=== PATIENT | female | born 1935 | race Caucasian/White ===

== ENCOUNTER 2017-01-02 10:06 | Emergency (ER) | payer MEDICARE ==
[2017-01-02 10:29] VITALS: BP 179/85
--- NOTE | 2017-01-02 10:45 | UC ---
Dizzy HPI HPI Summary: 61 this AM about 6:30AM Stayed in bed until about 8am because she felt bad dizzy feels as though she will pass out no CP or sob no palpitations Has a chronic CAMACHO for which she takes OTC meds head feels funny left forearm fells numb she has overwhelming anxiety with is something she has never had nausea - History Of Current Complaint Chief Complaint: UC Stated Complaint: DIZZY ARM FEELS FUNNY Time Seen by Provider: 01/02/17 10:23 Hx Obtained From: Patient Onset/Duration: Sudden Onset, Lasting Hours Timing: Constant Severity Initially: Moderate Severity Currently: Moderate Pain Intensity: 2 Pain Scale Used: 0-10 Numeric Character: Lightheaded, Dizzy Aggravating Factor(s): Nothing Alleviating Factor(s): Nothing Associated Signs And Symptoms: Positive: Nausea - Allergies/Home Medications Allergies/Adverse Reactions: Allergies Allergy/AdvReac Type Severity Reaction Status Date / Time No Known Allergies Allergy Verified 01/02/17 10:18 Home Medications: Home Medications Ogtnwjy-Wroxqwxjbuywh-Eaghhcsi [Excedrin Extra Strength 250-250-65 mg] [History] Atenolol TAB* [Tenormin TAB* 25 MG] 01/02/17 [History] PMH/Surg Hx/FS Hx/Imm Hx Cardiovascular History Of: Reports: Cardiac Disorders - MVP, "double beat" Cancer History Of: Denies: Breast Cancer - Surgical History Surgical History: Yes Surgery Procedure, Year, and Place: Hysterectomy. Large bowel resection. Left breast biopsy. Left kidney "arthroscopy". Right wrist sx- plate placement. Hemorrhoidectomy. Left knee menicus - Family History Known Family History: Positive: Hypertension - Social History Alcohol Use: None Substance Use Type: None Smoking Status (MU): Never Smoked Tobacco Have You Smoked in the Last Year: No Review of Systems Constitutional: Negative Skin: Negative Eyes: Negative ENT: Negative Respiratory: Negative Cardiovascular: Negative Gastrointestinal: Negative Genitourinary: Negative Motor: Negative Neurovascular: Negative Musculoskeletal: Negative Neurological: Numbness Psychological: Negative All Other Systems Reviewed And Are Negative: Yes Physical Exam Triage Information Reviewed: Yes Appearance: Well-Appearing, No Pain Distress, Well-Nourished Vital Signs: Initial Vital Signs Temp 97.7 F 01/02/17 10:19 Pulse 70 01/02/17 10:19 Resp 18 01/02/17 10:19 BP 179/85 01/02/17 10:19 Pulse Ox 96 01/02/17 10:19 Vital Signs Reviewed: Yes Eyes: Positive: Conjunctiva Clear ENT: Negative: Hearing grossly normal, Nasal congestion, Nasal drainage, Trismus , Muffled/hoarse voice Neck: Positive: Supple, Nontender, Other: - no bruits Respiratory: Positive: Lungs clear, Normal breath sounds, No respiratory distress Cardiovascular: Positive: RRR, Brisk Capillary Refill. Negative: Tachycardia, Bradycardia Abdomen Description: Positive: Nontender, No Organomegaly Bowel Sounds: Positive: Present Musculoskeletal: Positive: ROM Intact, No Edema Neurological: Positive: Alert Psychological Exam: Normal Skin Exam: Normal Diagnostics - EKG Cardiac Rate: NL Cardiac Rhythm: Sinus: Normal Ectopy: PACs ST Segment: Normal Dizzy Course/Dx - Course Course Of Treatment: d/w Dr. Zuñiga. accepts patient. [place] [facility] [place] - Differential Dx/Diagnosis Provider Diagnoses: dizziness. anxiety of uncertain cause Discharge - Discharge Plan Condition: Guarded Disposition: TRANS HIGHER LVL OF CARE FAC Referrals: Rolando Orellana MD [Primary Care Provider] -
== END 2017-01-02 11:01 | disposition short-term general hospital (02) ==
LOC: UCEAST 10:06
DX: F41.9 Anxiety disorder, unspecified (principal); R42 Dizziness and giddiness; R20.0 Anesthesia of skin; I34.1 Nonrheumatic mitral (valve) prolapse
CPT/HCPCS: 93005; 99213; G0463

== ENCOUNTER 2017-01-02 11:35 | Observation (INO) | payer MEDICARE ==
--- NOTE | 2017-01-02 13:06 | RAD ---
HISTORY: Weakness COMPARISONS: October 18, 2016 VIEWS:1: Single frontal portable view of the chest at 12:35 PM FINDINGS: LINES AND TUBES: None. CARDIOMEDIASTINAL SILHOUETTE: The cardiomediastinal silhouette is normal for portable technique. PLEURA: The costophrenic angles are sharp. No pleural abnormalities are noted. LUNG PARENCHYMA: There is hyperinflation. ABDOMEN: The upper abdomen is clear. There is no subphrenic gas. BONES AND SOFT TISSUES: No bone or soft tissue abnormalities are noted. IMPRESSION: COPD. NO ACTIVE CARDIOPULMONARY DISEASE.
--- NOTE | 2017-01-02 13:34 | RAD ---
HISTORY: Left arm paresthesia, near syncope COMPARISONS: None TECHNIQUE: Multiple contiguous axial CT scans were obtained of the head without intravenous contrast. FINDINGS: HEMORRHAGE/INFARCT: There is no hemorrhage or acute infarct. MASSES/SHIFT: There is no mass or shift. EXTRA-AXIAL SPACES: There are no extra-axial fluid collections. SULCI AND VENTRICLES: The sulci and ventricles are normal in size and position for the patient's stated age. CEREBRUM: There is mild patchy hypoattenuation of the periventricular and subcortical white matter. BRAINSTEM: There are no focal parenchymal abnormalities. CEREBELLUM: There are no focal parenchymal abnormalities. VESSELS: The vessels are grossly normal. PARANASAL SINUSES: The paranasal sinuses are clear. ORBITS: The orbits are unremarkable. BONES AND SOFT TISSUE: No bone or soft tissue abnormalities are noted. OTHER: None IMPRESSION: 1. NO ACUTE INTRACRANIAL PATHOLOGY. 2. MILD CHRONIC SMALL VESSEL ISCHEMIC CHANGES.
[2017-01-02 13:50] LABS: Hematocrit 43 % (35-47); Hemoglobin 13.6 g/dl (12.0-16.0); Mean Corpuscular HGB Conc 32 g/dl (31-36); Mean Corpuscular Hemoglobin 28 pg (27-31); Mean Corpuscular Volume 87 fL (80-97); Mean Platelet Volume 8 um3 (7.4-10.4); Red Blood Count 4.89 10^6/ul (4.0-5.4); Red Cell Distribution Width 15 % (10.5-15); White Blood Count 9.1 10^3/ul (3.5-10.8)
[2017-01-02 14:06] LABS: Albumin 3.9 g/dL (3.2-5.2); BUN/Creatinine Ratio 23.7 (8-20); Calcium 9.3 mg/dL (8.6-10.3); EGFR African American 94.2 (>60); EGFR Non-African American 73.2 (>60); Globulin 2.6 g/dL (2-4); Magnesium 2.1 mg/dL (1.9-2.7); Potassium 3.5 mmol/L (3.5-5.0); Total Bilirubin 0.5 mg/dL (0.2-1.0); Total Protein 6.5 g/dL (6.4-8.9); Troponin I 0.01 ng/mL (<0.04)
[2017-01-02 14:14] LABS: Urine Bacteria Absent (Absent); Urine Bilirubin Negative (Negative); Urine Glucose Negative (Negative); Urine Nitrite Negative (Negative)
--- NOTE | 2017-01-02 15:02 | RAD ---
CLINICAL HISTORY: Left flank pain, hematuria COMPARISON: None TECHNIQUE: Multiple contiguous axial CT scans were obtained of the abdomen and pelvis, without intravenous contrast enhancement. Coronal and sagittal multiplanar reformations are submitted for review. Oral contrast was not administered. FINDINGS: LUNG BASES: The lung bases are clear. LIVER: There are multiple low-attenuation hepatic parenchymal lesions. Largest are consistent with simple cysts. These are too small to definitively characterize. BILE DUCTS: There is no intrahepatic or extrahepatic biliary dilatation. GALLBLADDER: The gallbladder is normal, without pericholecystic inflammatory change. PANCREAS: The pancreas is normal, without mass or ductal dilatation. SPLEEN: As described below, there is a perisplenic or subcapsular lesion that appears to radiate from the left kidney, though is contiguous with the spleen. UPPER GI TRACT: Evaluation of the gastrointestinal tract is limited by incomplete gastric distention. The upper GI tract is unremarkable. SMALL BOWEL AND MESENTERY: The small bowel is normal in contour, course, and caliber. There is no obstruction or dilatation. COLON: There are multiple diverticula of the ascending, descending, and sigmoid colon. There is no pericolonic inflammatory change. There is post surgical change to the rectum. ADRENALS: Normal bilaterally. KIDNEYS: There is a lobulated partially calcified lesion that appears to regimen from the midpole of the left kidney and extends superiorly, contiguous with the spleen. This measures approximately 5.6 x 1.9 x 2.2 cm in size. Elsewhere, there is no hydronephrosis or nephrolithiasis BLADDER: The bladder is incompletely distended but is grossly normal. PELVIC ORGANS: The pelvic organs are not visualized. AORTA: There is calcific atherosclerotic disease of the abdominal aorta and its branches, without aneurysmal dilatation IVC: Unremarkable LYMPH NODES: There is no lymphadenopathy by size criteria. ABDOMINAL WALL: There is no evidence for abdominal wall hernia. BONES AND SOFT TISSUES: Degenerative changes are noted of the spine, most pronounced at L3-L4 and L5-S1 OTHER: None IMPRESSION: 1. NO HYDRONEPHROSIS OR NEPHROLITHIASIS. 2. THERE IS A PARTIALLY CALCIFIED LESION THAT IS CONTIGUOUS WITH BOTH THE SPLEEN AND THE LEFT KIDNEY, AND APPEARS TO ORIGINATE FROM THE LEFT KIDNEY. WHILE THIS MAY REPRESENT A SOLID RENAL PARENCHYMAL NEOPLASM, THE DIFFERENTIAL ALSO INCLUDES CALCIFICATION THE SEQUELA OF PREVIOUS PERISPLENIC HEMATOMA. THIS IS INCOMPLETELY EVALUATED ON THE CURRENT EXAMINATION. RECOMMEND FURTHER EVALUATION WITH CONTRAST-ENHANCED RENAL PROTOCOL CT VERSUS CONTRAST-ENHANCED MRI OF THE ABDOMEN IN THE NONACUTE SETTING, OR COMPARISON TO OUTSIDE IMAGING. 3. DIVERTICULOSIS WITHOUT PERICOLIC PLANTAR CHANGE TO SUGGEST DIVERTICULITIS. 4. ATHEROSCLEROSIS. 5. MULTIPLE LOW-ATTENUATION HEPATIC PARENCHYMAL LESIONS. THE LARGEST ARE CONSISTENT WITH SIMPLE CYSTS. THE OTHERS ARE TOO SMALL TO DEFINITIVELY CHARACTERIZE BUT LIKELY REPRESENT SMALL CYSTS VERSUS HEMANGIOMAS
--- NOTE | 2017-01-02 15:07 | ED ---
Nikhil Carvalho Claudia, scribed for Janis Zuñiga MD on 01/02/17 at 1248 . Dizziness - HPI Summary HPI Summary: 81 year old female presents to the ED with dizziness and nausea. Pt is referred to [facility] [facility] from [facility]. Pt notes 3 episodes of dizziness this am around 0800. Pt describes these episodes as near syncope. states became lightheaded and thought she was going to pass out. Pt also notes that she had nausea during these episodes - vomiting. Pt without history of similar. Pt denies cp, palpitation, sob with symtoms. She notes that she also had a new discomfort to her left arm from her elbow to her wrist this am but denies it being sharp or tingling in nature. Denies weakness to ext. She notes the discomfort is now gone. She also denies any weakness, facial droop, slurred speech this am, difficulty with speech or thought. Pt also states she is having some intermittent left side pain around her last rib since yesterday. Pt also denies dysuria, hematuria, diarrhea, and CP. Pt is not on any blood thinners but does take 100mg of [place] daily. No h/o CAD, CVA. Pt with h/o palpitations. Pt followed by a information assurance officer in [facility]. Take betablocker for palpitations. Pt went to urgent care by Lily Pt to ED by EMSPCP- Dr. Orellana - History Of Current Complaint Chief Complaint: EDDizziness Stated Complaint: DIZZY Time Seen by Provider: 01/02/17 12:24 Hx Obtained From: Patient Onset/Duration: Resolved Timing: Intermittent Episode Lasting - 5 min Severity Currently: None Character: Dizzy - near syncope, "things got cloudy like I was going to pass out." Aggravating Factor(s): Nothing Alleviating Factor(s): Nothing Associated Signs And Symptoms: Positive: Nausea, Other: - dizziness. Negative: Vomiting, SOB, Palpitations, Decreased Oral Intake, Fever, Chills, Blood In Stool - Allergies/Home Medications Allergies/Adverse Reactions: Allergies Allergy/AdvReac Type Severity Reaction Status Date / Time No Known Allergies Allergy Verified 01/02/17 10:18 Home Medications: Home Medications Aspirin-Caffeine [Anacin 400-32 mg] 1 tab PO DAILY 01/02/17 [History Confirmed 01/02/17] Calcium [Oyster-Abisai 500] 1,000 mg PO DAILY 01/02/17 [History Confirmed 01/02/17] Cholecalciferol [Vitamin D3 Ultra Strength] 10,000 unit PO DAILY 01/02/17 [ History Confirmed 01/02/17] Gabapentin CAP(*) [Neurontin 100 mg CAP(*)] 100 mg PO TID 01/02/17 [History Confirmed 01/02/17] Levothyroxine TAB* [Synthroid TAB*] 100 mcg PO DAILY 01/02/17 [History Confirmed 01/02/17] PMH/Surg Hx/FS Hx/Imm Hx Previously Healthy: Yes Endocrine/Hematology History: Reports: Hx Anticoagulant Therapy - asa - stopped taking recently second to gastritis Cardiovascular History: Reports: Other Cardiovascular Problems/Disorders - IRREGULAR HEARTBEAT/MTV ALSO GI History: Reports: Other GI Disorders - gastritis History: Reports: Other Problems/Disorders - 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 Large bowel resection. Left breast biopsy. Left kidney "arthroscopy". Right wrist sx- plate placement. Hemorrhoidectomy. Left knee menicus Infectious Disease History: No Infectious Disease History: Denies: Traveled Outside the [place] in Last 30 Days - Family History Known Family History: Positive: Cardiac Disease, Hypertension - Social History Occupation: Retired Lives: Alone Alcohol Use: None Substance Use Type: Reports: None Smoking Status (MU): Never Smoked Tobacco Have You Smoked in the Last Year: No Review of Systems - ROS Summary Review of Systems Summary: . Constitutional: Negative Negative: Fever, Chills Eyes: Negative Negative: Photophobia ENT: Negative Cardiovascular: Negative Negative: Chest Pain Respiratory: Negative Negative: Shortness Of Breath, Cough Positive: Nausea. Negative: Diarrhea Genitourinary: Negative Positive: flank pain. Negative: burning, dysuria, incontinence Musculoskeletal: Negative Skin: Negative Neurological: Other - dizziness Negative: Weakness, Numbness Psychological: Normal All Other Systems Reviewed And Are Negative: Yes Physical Exam Triage Information Reviewed: Yes Vital Signs On Initial Exam: Initial Vitals Temp Pulse Resp BP Pulse Ox 97.0 F 58 14 162/74 99 01/02/17 11:35 01/02/17 11:35 01/02/17 11:35 01/02/17 11:35 01/02/17 11:35 Vital Signs Reviewed: Yes Appearance: Positive: Well-Appearing, No Pain Distress Skin: Positive: Warm, Skin Color Reflects Adequate Perfusion, Dry Eyes: Positive: Normal, EOMI, OVI, Other: - no nystagmus b/l ENT: Positive: Normal ENT inspection, TMs normal Neck: Positive: Supple, Nontender Respiratory/Lung Sounds: Positive: Clear to Auscultation, Breath Sounds Present. Negative: Rales, Wheezes Cardiovascular: Positive: Normal, RRR, Other - no bruits b/l. Negative: Murmur Abdomen Description: Positive: Nontender, No Organomegaly, Soft Bowel Sounds: Positive: Present Musculoskeletal: Positive: Normal, Strength/ROM Intact Neurological: Positive: Normal, Sensory/Motor Intact, Alert, Oriented to Person Place, Time. Negative: CN Intact II-III, Facial Droop, Slurred Speech Psychiatric: Positive: Normal AVPU Assessment: Alert - Rashi Coma Scale Best Eye Response: 4 - Spontaneous Best Motor Response: 6 - Obeys Commands Best Verbal Response: 5 - Oriented Coma Scale Total: 15 Diagnostics - Vital Signs Vital Signs Temp Pulse Resp BP Pulse Ox 01/02/17 12:00 57 12 98 01/02/17 11:52 59 10 99 01/02/17 11:35 97.0 F 58 14 162/74 99 - Laboratory Lab Results: Lab Results 01/02/17 01/02/17 01/02/17 Range/Units 13:40 13:40 13:40 WBC 9.1 (3.5-10.8) 10^3/ul RBC 4.89 (4.0-5.4) 10^6/ul Hgb 13.6 (12.0-16.0) g/dl Hct 43 (35-47) % MCV 87 (80-97) fL MCH 28 (27-31) pg MCHC 32 (31-36) g/dl RDW 15 (10.5-15) % Plt Count 349 (150-450) 10^3/ul MPV 8 (7.4-10.4) um3 Neut % (Auto) 83.7 H (38-83) % Lymph % (Auto) 11.3 L (25-47) % Dodge % (Auto) 4.0 (1-9) % Eos % (Auto) 0.3 (0-6) % Baso % (Auto) 0.7 (0-2) % Absolute Neuts (auto) 7.6 (1.5-7.7) 10^3/ul Absolute Lymphs (auto) 1.0 (1.0-4.8) 10^3/ul Absolute Monos (auto) 0.4 (0-0.8) 10^3/ul Absolute Eos (auto) 0 (0-0.6) 10^3/ul Absolute Basos (auto) 0.1 (0-0.2) 10^3/ul Absolute Nucleated RBC 0 10^3/ul Nucleated RBC % 0 Sodium 134 (133-145) mmol/L Potassium 3.5 (3.5-5.0) mmol/L Chloride 101 (101-111) mmol/L Carbon Dioxide 26 (22-32) mmol/L Anion Gap 7 (2-11) mmol/L BUN 18 (6-24) mg/dL Creatinine 0.76 (0.51-0.95) mg/dL Est GFR ( Amer) 94.2 (>60) Est GFR (Non-Af Amer) 73.2 (>60) BUN/Creatinine Ratio 23.7 H (8-20) Glucose 85 (70-100) mg/dL Calcium 9.3 (8.6-10.3) mg/dL Magnesium 2.1 (1.9-2.7) mg/dL Total Bilirubin 0.50 (0.2-1.0) mg/dL AST 17 (13-39) U/L ALT 17 (7-52) U/L Alkaline Phosphatase 75 (34-104) U/L Total Creatine Kinase 47 (10-223) U/L Troponin I 0.01 (<0.04) ng/mL B-Natriuretic Peptide 106 H ( - 100) pg/mL Total Protein 6.5 (6.4-8.9) g/dL Albumin 3.9 (3.2-5.2) g/dL Globulin 2.6 (2-4) g/dL Albumin/Globulin Ratio 1.5 (1-3) Urine Color Urine Appearance Urine pH (5-9) Ur Specific Lapel (1.010-1.030) Urine Protein (Negative) Urine Ketones (Negative) Urine Blood (Negative) Urine Nitrate (Negative) Urine Bilirubin (Negative) Urine Urobilinogen (Negative) Ur Leukocyte Esterase (Negative) Urine WBC (Auto) (Absent) Urine RBC (Auto) (Absent) Ur Squamous Epith Cells (Absent) Urine Bacteria (Absent) Hyaline Casts (Absent) Urine Glucose (Negative) Urine Ascorbic Acid (Negative) 01/02/17 Range/Units 13:45 WBC (3.5-10.8) 10^3/ul RBC (4.0-5.4) 10^6/ul Hgb (12.0-16.0) g/dl Hct (35-47) % MCV (80-97) fL MCH (27-31) pg MCHC (31-36) g/dl RDW (10.5-15) % Plt Count (150-450) 10^3/ul MPV (7.4-10.4) um3 Neut % (Auto) (38-83) % Lymph % (Auto) (25-47) % Dodge % (Auto) (1-9) % Eos % (Auto) (0-6) % Baso % (Auto) (0-2) % Absolute Neuts (auto) (1.5-7.7) 10^3/ul Absolute Lymphs (auto) (1.0-4.8) 10^3/ul Absolute Monos (auto) (0-0.8) 10^3/ul Absolute Eos (auto) (0-0.6) 10^3/ul Absolute Basos (auto) (0-0.2) 10^3/ul Absolute Nucleated RBC 10^3/ul Nucleated RBC % Sodium (133-145) mmol/L Potassium (3.5-5.0) mmol/L Chloride (101-111) mmol/L Carbon Dioxide (22-32) mmol/L Anion Gap (2-11) mmol/L BUN (6-24) mg/dL Creatinine (0.51-0.95) mg/dL Est GFR ( Amer) (>60) Est GFR (Non-Af Amer) (>60) BUN/Creatinine Ratio (8-20) Glucose (70-100) mg/dL Calcium (8.6-10.3) mg/dL Magnesium (1.9-2.7) mg/dL Total Bilirubin (0.2-1.0) mg/dL AST (13-39) U/L ALT (7-52) U/L Alkaline Phosphatase (34-104) U/L Total Creatine Kinase (10-223) U/L Troponin I (<0.04) ng/mL B-Natriuretic Peptide ( - 100) pg/mL Total Protein (6.4-8.9) g/dL Albumin (3.2-5.2) g/dL Globulin (2-4) g/dL Albumin/Globulin Ratio (1-3) Urine Color Yellow Urine Appearance Clear Urine pH 5.0 (5-9) Ur Specific Lapel 1.012 (1.010-1.030) Urine Protein Negative (Negative) Urine Ketones 1+ H (Negative) Urine Blood 2+ H (Negative) Urine Nitrate Negative (Negative) Urine Bilirubin Negative (Negative) Urine Urobilinogen Negative (Negative) Ur Leukocyte Esterase Negative (Negative) Urine WBC (Auto) Trace(0-5/hpf) (Absent) Urine RBC (Auto) 2+(6-10/hpf) H (Absent) Ur Squamous Epith Cells Present H (Absent) Urine Bacteria Absent (Absent) Hyaline Casts Present H (Absent) Urine Glucose Negative (Negative) Urine Ascorbic Acid * H (Negative) Result Diagrams: 01/02/17 13:40 01/02/17 13:40 Lab Statement: Any lab studies that have been ordered have been reviewed, and results considered in the medical decision making process. - Radiology CXR Xray Interpretation: No Acute Changes - COPD. NO ACTIVE CARIOPULMONARY DISEASE. Radiology Interpretation Completed By: Radiologist - CT BRAIN CT CT Interpretation: No Acute Changes - NO ACUTE INTRACRANIAL PATHOLOGY MILD CHRONIC SMALL VESSEL CHANGES ABD/PELVIS CT CT Interpretation: Positive (See Comments) - NO HYDRONEPHORSIS OR NEPHROLITHIASIS. THERE US A PARTIALLY CALCIFIED LESION THAT IS CONTIGUOUS WITH BOTH THE SPLEEN AND THE LEFT KIDNEY, AND APPEARS TO ORIGINATE FROM THE LEFT KIDNEY. WHILE THIS MAY REPRESENT A SOLID RENAL PARENCHYMAL NEOPLASM, THE DIFFERENTIAL ALSO INCLUDES CALCIFICATION THE SEQUELA OF PREVIOUS PERISPLENIC HEMATOMA. THIS IS INCOMPLETELY EVALUATED ON THE CURRENT EXAMINATION. RECOMMEND FURTHER EVALUATION WITH CONTRAST-ENHANCED RENAL PROTOCOL CT VERSUS CONTRAST- ENHANCED MRI OF THE ABDOMEN IN THE NONACUTE SETTING, OR COMPARISON TO OUTSIDE IMAGING. DIVERTICULOSIS WITHOUT PERCOLORIC PLANTAR CHNAGE TO SUGGEST DIVERTICULITIS. ARTHEROSCELEROSIS. MULTIPLE LOW-ATTENUTATION HEPATIC PARENCHYMAL LESIONS. THE LARGEST ARE CONSISTENT WITH SIMPLE CYSTS. THE OTHERS ARE TOO SMALL TO DEFINITIVELY CHARACTERIZE BUT LIEKLY REPRESENT SMALL CYSTS VERUS HEMANGIMOAS. CT Interpretation Completed By: Radiologist - EKG No standard instances Cardiac Rate: NL - 57 ST Segment: Normal Ectopy: None EKG Comparison: No Significant Change National Institutes Of Health - NIH Scale Level of Consciousness: Alert/Keenly Responsive Ask Patient the Month and His/Her Age: Both Correct Ask Pt to Open/Close Eyes and Executive Pilot/Release Non-Paretic Hand: Both Correctly Best Gaze (Only Horizontal Eye Movement): Normal Visual Field Testing: No Visual Loss Motor Function - Right Arm: No Drift-Holds 10 Seconds Motor Function - Left Arm: No Drift-Holds 10 Seconds Motor Function - Right Leg: No Drift-Holds 10 Seconds Motor Function - Left Leg: No Drift-Holds 10 Seconds Limb Ataxia-Must be out of Proportion to Weakness Present: Absent Sensory (Use Pinprick to Test Arms/Legs/Trunk/Face): Normal Best Language (Describe Picture, Name Items): No Aphasia Dysarthria (Read Several Words): Normal Extinction and Inattention: No Abnormality Re-Evaluation - Re-Evaluation 1 Re-Evaluation Time: 14:25 Change: Improved Comment: test results reviewed. Pt with hematuria and crystals - will check CT for renal stones. anticipate obv for near syncope Pt in agreement with plan Dizzy Course/Dx - Course Assessment/Plan: Pt presents by EMS- sent from urgent care. Pt with 3 episodes of near syncope this morning accompanied by nausea. Pt states also had sensory changes to left distal forearm . All sx resolved. - Diagnoses Provider Diagnoses: Near syncope, Paresthesia - Provider Notifications Discussed Care Of Patient with: CALLED HOPSITALIST [id number] Discharge - Discharge Plan Condition: Stable Disposition: ADMITTED TO [facility] documentation as recorded by the Nikhil alford Claudia accurately reflects the service I personally performed and the decisions made by me, Janis Zuñiga MD.
[2017-01-02] MEDS ORDERED: Gabapentin CAP(*) 100 MG ONE (16:02)
[2017-01-02] MEDS: Gabapentin CAP(*) 100 MG PO SCH ×2 (16:03→21:09)
[2017-01-02] MEDS ORDERED: Ondansetron INJ* 2 MG/ML VIAL IV PRN (17:01)
[2017-01-02] MEDS: NS 0.9% 1000 ML* 1,000 ML IV SCH (18:03)
[2017-01-02] MEDS ORDERED: Atenolol TAB* 25 MG PO SCH (21:00)
--- NOTE | 2017-01-02 22:24 | HP ---
HOSPITAL MEDICINE HISTORY AND PHYSICAL: DATE OF ADMISSION: 01/02/17 PRIMARY CARE PHYSICIAN: Dr. Orellana. ATTENDING PHYSICIAN: Dr. Joslyn Cochran *(dictation provided by Savanah Fountain NP) . CHIEF COMPLAINT: Lightheadedness and dizziness. HISTORY OF PRESENT ILLNESS: Ms. Glasgow is an 81-year-old female with a past medical history of transient global amnesia in 2000, panic attacks, hypothyroidism who presents to the hospital today with complaint of lightheadedness and dizziness. Ms. Glasgow states that she was in her normal state of health last night when she went to bed. When she awoke this morning, she "did not feel right." She was unable to really provide a clear sense of her state, but states that she felt foggy. She went back to sleep, which was very unusual for her. When she awoke, she felt waves of feeling that she was about to faint. She had some nausea. She ultimately decided to call a cab and was taken to [facility] and then brought on to the emergency room. In the ER today, she is now complaining of some left sided pain along her lower ribs. She denies any trauma to the area. She denies any fevers, chills, cough, chest pain, shortness of breath,or vomiting. She does not that she has been sick for approximately a month with gastritis but that she felt this had resolved several days ago. In the emergency room, Ms. Glasgow was found to have a sinus bradycardia with a heart rate of almost 60. She had labs, which showed no significant abnormalities. Her urinalysis showed no abnormality. Chest x-ray was normal. CT brain was normal. 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 It was otherwise unremarkable with a full report below. Based on Ms. Glasgow's presentation with concern for lightheadedness, dizziness, and presyncopal episode, Hospital Medicine was called regarding admission. PAST MEDICAL HISTORY: 1. Transient global amnesia, 2000. 2. Panic attacks. 3. History of thyroid surgery and subsequent hypothyroidism. 4. Colon resection secondary to diverticulitis. 5. Hysterectomy. 6. History of "double heart beats." 7. Osteoporosis. 8. Macular degeneration. 9. Scoliosis. 10. Spinal stenosis. 11. 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 MEDICATIONS: 1. Gabapentin 100 mg p.o. t.i.d. 2. Aspirin with caffeine 1 tab p.o. daily. 3. Calcium 1000 mg p.o. daily. 4. Atenolol 25 mg p.o. daily. 5. Cholecalciferol 10,000 units p.o. daily. 6. Levothyroxine 100 mcg p.o. daily. ALLERGIES: No known drug allergies. FAMILY HISTORY: The patient reports her father had aortic valve replacement. Mother related to old age. She has a brother who is 84 and has a pacemaker. Healthcare proxy is the niece. SOCIAL HISTORY: No report of alcohol, tobacco, or drug use. Again, the healthcare proxy is the niece. REVIEW OF SYSTEMS: A 14-point review of systems was completed with Ms. Glasgow and all those not mentioned above were negative. PHYSICAL EXAMINATION GENERAL: Ms. Glasgow is lying in the bed. She is in no acute distress. She is calm and cooperative with my examination. VITAL SIGNS: Temperature 97.0, heart rate 74, respiratory rate 15, O2 saturation 99% on room air, blood pressure 136/69. LUNGS: Clear to auscultation bilaterally with no accessory muscle use and good aeration. HEART: S1, S2. No murmur, rub, or gallop and regular. ABDOMEN: Soft, nontender with bowel sounds positive x4. EXTREMITIES: No cyanosis or edema. NEUROLOGIC: She is alert and oriented x3. She moves all extremities equally. There is no facial asymmetry or focal weakness. Extraocular movements are intact. SKIN: Intact. LABORATORY DATA: WBC 9.1, hemoglobin 13.6, hematocrit 43, platelet count 349. Sodium 134, potassium 3.5, chloride 101, serum bicarbonate 26, BUN 18, creatinine 0.76, glucose 85. Troponin 0.01. Urine shows no evidence of infection. IMAGING: Chest x-ray is read as follows: "COPD, no active cardiopulmonary disease." CT brain is read as follows: "No acute intracranial pathology. Mild chronic small vessel ischemic changes." Abdomen and pelvis CT is read as follows: "No hydronephrosis or nephrolithiasis. There is a partially calcified lesion that is contiguous with both the spleen and the left kidney and appears to originate from the left kidney. While this may represent a solid renal parenchymal neoplasm, the differential diagnosis also includes calcification as a sequelae of previous parasplenic hematoma. This is incompletely evaluated on the current examination. Recommend further evaluation with contrast enhanced renal protocol or comparison to outside imaging, diverticulosis without change to suggest diverticulitis. Atherosclerosis, multiple low attenuation hepatic parenchymal lesions, the largest are consistent with simple cyst. The others are too small to definitively characterize though likely represents small cysts versus hemangiomas." ASSESSMENT AND PLAN: Ms. Glasgow is an 81-year-old female with a past medical history of hypothyroidism, status post thyroid surgery; transient global amnesia ; panic attacks who presents today to the hospital with complaint of lightheadedness and dizziness. She is feeling better at this point, but based on her medical history and age, plans are for her to be observed in the hospital overnight. Plans are as follows: 1. Lightheadedness and dizziness: The patient has showed no arrhythmia thus far. Her orthostatic vital signs are stable. The question whether or not this is perhaps related to gastritis and feeling poorly over the past month. Regardless, I do think it would be worthwhile to monitor her for any heart arrhythmia that could have led to her symptoms. She has had multiple transthoracic echocardiograms in the past. I do not think that would be of benefit to repeat. I will also give her some gentle IV fluids overnight and she is encouraged to ambulate after the evening and in the morning. 2. Left sided pain: Patient has pain along her left ribs. CT chest, abd, pelvis shows no abnormalities. Plan to continue to monitor and provide analgesia as needed. 3. Hematuria: No evidence of nephrolithiasis as per above. Question significance given that specimen was contaminated. Recommend follow up with outpatient urologist. 4. CT abnormalities: The patient states that she did have removal of a benign tumor on her left kidney and that there was a splenic hematoma at that point that has been followed by her urologist with no change. I do not think that there is any followup needed for that CT concern noted by Dr. Cook. 5. Hypothyroidism: Continue levothyroxine. 6. Tachycardia: Continue atenolol. 7. DVT prophylaxis with SCDs. 8. Code status is DNR. TIME SPENT: Approximately 60 minutes were spent on the admission of this patient, more than half time spent with her at the bedside reviewing the events leading up to this hospitalization, performing the physical examination, and reviewing the plan of care. SAVANAH FOUNTAIN NP CC: Dr. Orellana * [id number]/[facility] #: [id number] BEN
[2017-01-03] MEDS ORDERED: Levothyroxine TAB* 100 MCG TAB PO SCH (06:00)
[2017-01-03] MEDS: NS 0.9% 1000 ML* 1,000 ML IV SCH (07:43)
[2017-01-03] MEDS: Gabapentin CAP(*) 100 MG PO SCH (08:59)
[2017-01-03] MEDS ORDERED: Cholecalciferol TAB* 1000 UNITS PO SCH (09:00)
--- NOTE | 2017-01-03 11:53 | PN ---
Subjective Date of Service: 01/03/17 Interval History: Patient seen and examined at bedside. Denies fever, chills, shortness of breath , chest discomfort, lightheadedness, N/V/D. Pt has been up and ambulating without difficulty. Tele: Sinus eduardo, rate 50-70's. Family History: Unchanged from Admission Social History: Unchanged from Admission Past Medical History: Unchanged from Admission Objective Active Medications: Atenolol (Tenormin Tab*) 25 mg PO 2100 ROSELYN Cholecalciferol (Vitamin D Tab*) 5,000 units PO DAILY ROSELYN Gabapentin (Neurontin Cap(*)) 100 mg PO TID ROSELYN Sodium Chloride (Ns 0.9% 1000 Ml*) 1,000 mls @ 75 mls/hr IV PER RATE ROSELYN Levothyroxine Sodium (Synthroid Tab*) 100 mcg PO 0600 ROSELYN Ondansetron HCl (Zofran Inj*) 4 mg IV Q6H PRN Reason: NAUSEA Vital Signs 01/02/17 01/02/17 01/02/17 15:26 15:30 16:00 Temperature Pulse Rate 68 64 72 Respiratory 14 14 15 Rate Blood Pressure 124/60 117/59 136/69 (mmHg) O2 Sat by Pulse 99 99 99 Oximetry 01/02/17 01/02/17 01/02/17 16:47 17:47 18:31 Temperature 97.7 F Pulse Rate 64 Respiratory 14 14 14 Rate Blood Pressure 129/65 (mmHg) O2 Sat by Pulse 100 Oximetry 01/02/17 01/02/17 01/02/17 19:26 21:09 23:09 Temperature 97.7 F Pulse Rate 68 Respiratory 18 18 18 Rate Blood Pressure 104/44 (mmHg) O2 Sat by Pulse 94 Oximetry 01/02/17 01/03/17 01/03/17 23:35 04:22 04:58 Temperature 98.1 F 99.1 F Pulse Rate 51 56 Respiratory 16 16 Rate Blood Pressure 109/52 125/73 132/58 (mmHg) O2 Sat by Pulse 98 98 Oximetry Oxygen Devices in Use Now: None Appearance: NAD, laying in bed Eyes: No Scleral Icterus, PERRLA Ears/Nose/Mouth/Throat: NL Teeth, Lips, Gums, Mucous Membranes Moist Neck: NL Appearance and Movements; NL JVP, Trachea Midline Respiratory: Symmetrical Chest Expansion and Respiratory Effort, Clear to Auscultation Cardiovascular: NL Sounds; No Murmurs; No JVD, RRR Abdominal: NL Sounds; No Tenderness; No Distention Extremities: No Edema Skin: No Rash or Ulcers Neurological: Alert and Oriented x 3, NL Muscle Strength and Tone Nutrition: Taking PO's Result Diagrams: 01/02/17 13:40 01/02/17 13:40 Additional Lab and Data: Assess/Plan/Problems-Billing Assessment: Ms. Glasgow is a 81 yo female with PMH significant for hypothyroidism, transient global amnesia, panic attacks who presented to the hospital with complaints of lightheadedness and dizziness. - Patient Problems (1) Lightheadedness Code(s): R42 - DIZZINESS AND GIDDINESS SNOMED Code(s): 509752530 Comment: - Resolved - No arrhythmias seen - Orthostatic vital signs stable - Pt reports gastritis over the past month and not taking in good oral fluids - Suspect related to dehydration (2) Left sided abdominal pain Code(s): R10.9 - UNSPECIFIED ABDOMINAL PAIN SNOMED Code(s): 347075523 Comment: - Resolved (3) Hematuria Code(s): R31.9 - HEMATURIA, UNSPECIFIED SNOMED Code(s): 52479184 Comment: - Recheck urine outpatient for hematuria - Recommend follow-up with Urology outpatient, if this persists (4) Hypothyroidism Code(s): E03.9 - HYPOTHYROIDISM, UNSPECIFIED SNOMED Code(s): 42461667 Comment: - Continue Levothyroxine (5) DVT prophylaxis Code(s): TKW6816 - SNOMED Code(s): 634485698 (6) Full code status Code(s): Z78.9 - OTHER SPECIFIED HEALTH STATUS SNOMED Code(s): 123262281 Status and Disposition: OBV. Stable for discharge to home.
[2017-01-03 13:04] VITALS: BP 132/63
--- NOTE | 2017-01-04 01:42 | DS ---
DISCHARGE SUMMARY: DATE OF ADMISSION: 01/02/17 DATE OF DISCHARGE: 01/03/17 ATTENDING PHYSICIAN: Rogelio Zuñiga MD *(dictated by Aubree Bernal NP). PRIMARY CARE PROVIDER: Rolando Orellana MD. PRIMARY DIAGNOSES: 1. Lightheadedness and dizziness, resolved. 2. Hematuria. 3. Left-sided pain, resolved. SECONDARY DIAGNOSES: 1. Hypothyroidism. 2. History of tachycardia. STUDIES WHILE IN THE HOSPITAL: 1. Chest x-ray on 01/02/17. Radiologist impression: COPD, no active cardiopulmonary disease. 2. Brain CT on 01/02/17. Radiologist impression: No acute intracranial pathology. Mild chronic small vessel ischemic changes. 3. Abdomen and pelvis CT on 01/02/17. Radiologist impression: No hydronephrosis or nephrolithiasis. There is a partially calcified lesion that is contiguous with both the spleen and the left kidney, and appears to originate from the left kidney. While this may represent a solid renal parenchymal neoplasm, the differential also includes calcification as a sequela of a previous perisplenic hematoma. This was incompletely evaluated on the current examination. Recommend further evaluation with a contrast-enhanced renal protocol CT versus contrast-enhanced MRI of the abdomen in the non-acute setting, or comparison to outside imaging. Diverticulosis without pericolonic inflammatory change to suggest diverticulitis. Atherosclerosis. Multiple low- attenuation hepatic parenchymal lesions described, the largest are consistent with simple cysts. The others are too small to definitively characterize but likely represent small cysts versus hemangiomas. DISCHARGE MEDICATIONS: Continued home medications: 1. Atenolol 25 mg oral daily. 2. Vitamin D3 at 10,000 units oral daily. 3. Levothyroxine 100 mcg oral daily. 4. Gabapentin 100 mg oral 3 times daily. 5. Calcium 1000 mg oral daily. 6. Anacin 400 mg/32 mg 1 tablet oral daily. HISTORY OF PRESENT ILLNESS\E\HOSPITAL COURSE: Ms. Glasgow is an 81-year-old female with past medical history significant for transient global amnesia in 2000, panic attacks, hypothyroidism secondary to a thyroid surgery, who presented to the emergency room with complaints of lightheadedness and dizziness. According to Ms. Glasgow, she was in her normal state of health when she went to bed the night before. When she awoke the following morning, she did not feel right. The patient reported some nausea and feeling foggy and waves as if she was going to faint. Ultimately, the patient decided to present to urgent care for evaluation and then was transferred to the emergency room. While in the emergency room, the patient was found to be sinus bradycardia with heart rate around 60. She had labs that showed no significant abnormalities. She had a urinalysis with no abnormalities. The patient had a normal chest x- ray. Normal CT of the brain. The patient had abdomen and pelvis CT showing a chronic splenic hematoma that was otherwise unremarkable. Based of the patient' s presentation with concern for lightheadedness, dizziness, and a presyncopal episode, hospitalist service was asked to evaluate the patient for admission. While in the hospital, the patient was monitored on telemetry. No arrhythmias were seen. She was noted to be bradycardic with her rate 50s to 60s during her stay. The patient's lightheadedness and dizziness resolved. She received IV fluids overnight. The patient reports recently having gastritis and feeling poorly over the last month. I suspect the patient's lightheadedness and dizziness are related to dehydration. She is feeling much better with IV fluids. The patient has been able to walk around the hallways with no further lightheadedness or dizziness. The patient was complaining of left-sided abdominal pain along her ribs when she presented. She had a CT showing no abnormalities. The patient denies any further pain this morning. The patient was noted to have blood in her urinalysis. The patient had an abdomen CT showing no signs of nephrolithiasis. It was recommended that the patient have followup with outpatient urologist if this persisted. Ms. Glasgow is feeling well and anxious to be discharged. Ms. Glasgow is stable for discharge today. Vital signs are as follows: Temperature 98.8, heart rate 54, respiratory rate 16, O2 sat 99% on room air, blood pressure 132/63. DISCHARGE PLAN: Ms. Glasgow will be discharged home. Activity as tolerated. She will be on a regular diet. She is encouraged to make sure she is drinking plenty of fluids to stay hydrated. As far as the patient's lightheadedness and dizziness, it is resolved, I suspect this was secondary to dehydration. The patient had no arrhythmias noted on tele. Her heart rate do tend to be in the 50's. If she does continue to have lightheadedness and dizziness, we would recommend considering adjusting her beta-liseth. As far as the patient's left- sided pain, this has resolved. The patient did have some CT abnormalities, this appears to be consistent with the removal of the benign tumor of her left kidney and hematoma. The patient is followed by her outpatient urologist. For the patient's hypothyroidism, she should be continued on levothyroxine. The patient was noted to have hematuria on urinalysis. I recommend followup with this and if this continues to be persistent, the patient should follow with her outpatient urologist. This is a summarized report of a complex medical history and hospital stay; for further details, please see the entire medical record. TIME SPENT: Time for this discharge was 50 minutes, and 25 minutes were spent face- to-face with the patient discussing discharge plans and instructions. CONDITION ON DISCHARGE: Stable. Reviewed by DELANEY ELIZABETH 01/12/17 0912 CC: Rolando Orellana MD * [id number]/[facility] #: [id number] BEN
== END 2017-01-03 13:10 | disposition home or self-care (01) ==
LOC: ED 11:35 → MEDTELE 15:18
PROVIDERS: ADMIT Hospitalist; ATTEND Emergency Medicine
DX: R42 Dizziness and giddiness (principal); R31.9 Hematuria, unspecified; R10.9 Unspecified abdominal pain; E03.9 Hypothyroidism, unspecified; R00.0 Tachycardia, unspecified; Z79.899 Other long term (current) drug therapy; F41.9 Anxiety disorder, unspecified; G45.4 Transient global amnesia; R00.1 Bradycardia, unspecified; R20.0 Anesthesia of skin; I34.1 Nonrheumatic mitral (valve) prolapse
CPT/HCPCS: 36415; 70450; 71010; 74176; 80053; 81003; 81015; 82550; 83735; 83880; 84484; 85025; 93005; 99213; 99283; A9270-GY; G0378; G0463

== ENCOUNTER 2018-03-02 22:00 | Emergency (ER) | payer MEDICARE ==
[2018-03-02 23:16] LABS: ABS Basophils 0.1 10^3/ul (0-0.2); ABS Eosinophils 0.1 10^3/ul (0-0.6); ABS Lymphocytes 1.3 10^3/ul (1.0-4.8); ABS Monocytes 0.5 10^3/ul (0-0.8); ABS Neutrophils 5.3 10^3/ul (1.5-7.7); ABS Nucleated RBC 0 10^3/ul; Hematocrit 40 % (35-47); Hemoglobin 13.1 g/dl (12.0-16.0); Lymphocyte % 17.3 % (25-47); Mean Corpuscular HGB Conc 33 g/dl (31-36); Mean Corpuscular Hemoglobin 29 pg (27-31); Mean Corpuscular Volume 87 fL (80-97); Mean Platelet Volume 8.2 um3 (7.4-10.4); Nucleated Red Blood Cells % 0.1; Platelet Count 281 10^3/ul (150-450); Red Cell Distribution Width 13 % (10.5-15); White Blood Count 7.3 10^3/ul (3.5-10.8)
[2018-03-02 23:24] LABS: INR 0.88 (0.77-1.02)
[2018-03-02 23:41] LABS: EGFR Non-African American 61.7 (>60)
[2018-03-03 00:31] VITALS: BP 143/77
[2018-03-03] MEDS ORDERED: Aspirin 81 mg CHEW TAB* 81 MG TAB.CHEW PO ONE (00:34)
--- NOTE | 2018-03-03 00:49 | ED ---
Dona Carvalho Rebecca, scribed for Rebecca Spirng MD on 03/02/18 at 2237 . Palpitations / Dysrhythmia - HPI Summary HPI Summary: Pt is an 82 y/o F who presents to ED c/o palpitations. Pt reports a Hx of "double heartbeat" and that it is typically controlled, but tonight she suddenly began experiencing palpitations characterized as rapid. Sx began tonight at approximately 2030. She took an extra dose of Atenolol (25 mg x2) and a Lorazepam (5 mg). - History of Current Complaint Chief Complaint: EDDysrhythmPalp Time Seen by Provider: 03/02/18 22:20 Hx Obtained From: Patient Onset/Duration: Sudden Onset, Still Present Character: Fast Aggravating: Nothing Alleviating: Nothing Associated Signs & Symptoms: Negative - Allergy/Home Medications Allergies/Adverse Reactions: Allergies Allergy/AdvReac Type Severity Reaction Status Date / Time No Known Allergies Allergy Verified 03/02/18 22:16 PMH/Surg Hx/FS Hx/Imm Hx Endocrine/Hematology History: Reports: Hx Anticoagulant Therapy - asa - stopped taking recently second to gastritis Denies: Hx Diabetes Cardiovascular History: Reports: Other Cardiovascular Problems/Disorders - IRREGULAR HEARTBEAT/MTV ALSO Denies: Hx Hypertension, Hx Pacemaker/ICD GI History: Reports: Other GI Disorders - gastritis History: Reports: Other Problems/Disorders - benign tumor resected left kidney - pt with stable "edema" by kidney since Denies: Hx Renal Disease Sensory History: Reports: Hx Macular Degeneration Denies: Hx Hearing Aid Opthamlomology History: Reports: Hx Macular Degeneration Neurological History: Denies: Hx CVA Psychiatric History: Denies: Hx Panic Disorder - Cancer History Hx Chemotherapy: No Hx Radiation Therapy: No - Surgical History Surgery Procedure, Year, and Place: Hysterectomy-THYROIDECTOMY 2011. Large bowel resection-BILATERAL CATARACT SURGERY 1999'. Left breast biopsy. Left kidney "arthroscopy" REMOVAL OF BENIGN TUMOR. Right wrist sx- plate placement. Hemorrhoidectomy. Left knee menicus Infectious Disease History: No Infectious Disease History: Denies: Traveled Outside the [place] in Last 30 Days - Family History Known Family History: Positive: Cardiac Disease, Hypertension - Social History Alcohol Use: None Substance Use Type: Reports: None Smoking Status (MU): Never Smoked Tobacco Have You Smoked in the Last Year: No Review of Systems Negative: Fever Positive: Palpitations All Other Systems Reviewed And Are Negative: Yes Physical Exam - Summary Physical Exam Summary: VITAL SIGNS: Reviewed. GENERAL: ~Patient is a well-developed and nourished female who is lying comfortable in the stretcher. Patient is not in any acute respiratory distress. HEAD AND FACE: No signs of trauma. No ecchymosis, hematomas or skull depressions. No sinus tenderness. EYES: PERRLA, EOMI x 2, No injected conjunctiva, no nystagmus. EARS: Hearing grossly intact. Ear canals and tympanic membranes are within normal limits. MOUTH: Oropharynx within normal limits. NECK: Supple, trachea is midline, no adenopathy, no JVD, no carotid bruit, no c- spine tenderness, neck with full ROM. CHEST: Symmetric, no tenderness at palpation LUNGS: Clear to auscultation bilaterally. No wheezing or crackles. CVS: Irregular heart rhythm, normal rate, S1 and S2 present, no murmurs or gallops appreciated. ABDOMEN: Soft, non-tender. No signs of distention. No rebound no guarding, and no masses palpated. Bowel sounds are normal. EXTREMITIES: FROM in all major joints, no edema, no cyanosis or clubbing. NEURO: Alert and oriented x 3. No acute neurological deficits. Speech is normal and follows commands. SKIN: Dry and warm Triage Information Reviewed: Yes Vital Signs On Initial Exam: Initial Vitals Temp Pulse Resp BP Pulse Ox 97.5 F 80 16 148/88 96 03/02/18 22:05 03/02/18 22:05 03/02/18 22:05 03/02/18 22:05 03/02/18 22:05 Vital Signs Reviewed: Yes Diagnostics - Vital Signs Vital Signs Temp Pulse Resp BP Pulse Ox 03/02/18 22:05 97.5 F 80 16 148/88 96 - Laboratory Result Diagrams: 03/02/18 22:55 03/02/18 22:55 Lab Statement: Any lab studies that have been ordered have been reviewed, and results considered in the medical decision making process. - Radiology CXR Xray Interpretation: No Acute Changes - Hyperinflation, COPD. No acute process. Radiology Interpretation Completed By: ED Physician - EKG 2225 Cardiac Rate: NL - 83 bpm EKG Rhythm: Atrial Fibrillation EKG Interpretation: Minimal ST depression in the inferior leads Re-Evaluation - Re-Evaluation First Eval Re-Evaluation Time: 00:30 Comment: Discussed results. Still in A Fib, however she has been rate controled while in the ED. Her HR was around 70-80 bpm. According to the CHADS2 score pt risk for thrombolitis incident is 1 that means she does not need anticoagulation. Pt advised to take 1 baby ASA everyday, to continue atenolol and followup with caridologist tomorrow. Course/Dx - Course Assessment/Plan: Pt is an 82 y/o F who presents to ED c/o palpitations. Pt reports a Hx of "double heartbeat" and that it is typically controlled, but tonight she suddenly began experiencing palpitations characterized as rapid. Sx began tonight at approximately 2030. She took an extra dose of Atenolol (25 mg x2) and a Lorazepam (5 mg). CXR reveals no acute process. EKG is A Fib with minimal ST depression in the inferior leads. Bloodwork was done. Troponin is 0.01. Upon reevaluation, the pt is still in A Fib, however she has been rate controled while in the ED. Her HR was around 70-80 bpm. According to the CHADS2 score pt risk for thrombolitis incident is 1 that means she does not need anticoagulation. Pt advised to take 1 baby ASA everyday, to continue atenolol and followup with caridologist tomorrow. She will be D/C to home with Dx of A Fib. She understands and agrees. - Diagnoses Provider Diagnoses: A-fib Discharge - Sign-Out/Discharge Documenting (check all that apply): Discharge - Discharge - Discharge Plan Condition: Stable Disposition: HOME Referrals: Rolando Orellana MD [Primary Care Provider] - 3 Days Additional Instructions: Take 1 baby aspirin every day. Continue Atenolol as prescribed. Follow-up with your blending kettle tender tomorrow. RETURN TO EMERGENCY DEPARTMENT FOR ANY NEW OR WORSENING SYMPTOMS The documentation as recorded by the Dona alford Rebecca accurately reflects the service I personally performed and the decisions made by me, Rebecca Spring MD.
--- NOTE | 2018-03-03 07:49 | RAD ---
Indication: Palpitations. Single frontal view of the chest performed at 2244 hours was reviewed. Comparison is made with previous exam dated January 02, 2017. No mediastinal shift is noted. There is cardiomegaly. Lung lambert appear hyperinflated. IMPRESSION: HYPERINFLATED LUNG LAMBERT WITH NO DEFINITE PNEUMONIA.
== END 2018-03-03 00:43 | disposition home or self-care (01) ==
LOC: ED 22:00
DX: I48.91 Unspecified atrial fibrillation (principal); Z79.82 Long term (current) use of aspirin
CPT/HCPCS: 36415; 71045; 80053; 83605; 83735; 84443; 84484; 85025; 85610; 85730; 93005; 99283; A9270-GY

== ENCOUNTER → 2018-10-13 09:05 | Emergency (ER) | payer MEDICARE ==
[~2018-10-13 09:05] MED LIST: Aspirin 81 mg CHEW TAB* 81 MG TAB.CHEW PO ONE; Nitroglycerin TAB 0.4 MG* 0.4 MG TAB SL ONE
--- NOTE | 2018-10-13 09:35 | ED ---
HPI Chest Pain - HPI Summary HPI Summary: An 84 y/o female presents to [facility] with a chief complaint of intermittent CP since the night of 10/12/18. She claims that her CP is more right sided but currently denies pain. She rates her pain as 5/10 when she has her pain. Deep breaths don't aggravate her chest pain. She also c/o weakness but denies calf pain/swelling. She denies a Hx of CHF, PA or blood clots in legs or lungs, but admits to a Hx of A-fib. She was in the ED on 02/28/18 when she was diagnosed with A-fib. She takes aspirin. - History of Current Complaint Chief Complaint: EDChestPainROMI Time Seen by Provider: 10/13/18 09:21 Hx Obtained From: Patient Onset/Duration: Started Hours Ago, Still Present Timing: Intermittent Initial Severity: Moderate Current Severity: Moderate Pain Intensity: 5 Pain Scale Used: 0-10 Numeric Chest Pain Location: Right Anterior Chest Pain Radiates: No Associated Signs and Symptoms: Positive: Weakness. Negative: Calf Pain/Swelling - Additional Pertinent History Primary Care Physician: [id number] - Allergy/Home Medications Allergies/Adverse Reactions: Allergies Allergy/AdvReac Type Severity Reaction Status Date / Time No Known Allergies Allergy Verified 10/13/18 09:17 Home Medications: Home Medications Atenolol TAB* [Tenormin TAB* 25 MG] 25 mg PO DAILY 10/13/18 [History Confirmed 10/13/18] Calcium Carbonate [Calcium] 1,000 mg PO DAILY 10/13/18 [History Confirmed ] Cholecalciferol (Vitamin D3) [Vitamin D3] 10,000 unit PO DAILY 10/13/18 [ History Confirmed 10/13/18] Gabapentin CAP(*) [Neurontin 100 mg CAP(*)] 100 mg PO TID 10/13/18 [History Confirmed 10/13/18] LORazepam TAB(*) [Ativan 0.5 MG TAB (*)] 0.25 mg PO DAILY PRN 10/13/18 [History Confirmed 10/13/18] Levothyroxine TAB* [Synthroid TAB*] 100 mcg PO DAILY 10/13/18 [History Confirmed 10/13/18] Ranitidine TAB (NF) [Zantac TAB (NF)] 150 mg PO DAILY PRN 10/13/18 [History Confirmed 10/13/18] Vit C/E/Zn/Coppr/Lutein/Zeaxan [Preservision Areds 2 Softgel] 1 cap PO DAILY [History Confirmed 10/13/18] PMH/Surg Hx/FS Hx/Imm Hx Endocrine/Hematology History: Reports: Hx Anticoagulant Therapy - asa - stopped taking recently second to gastritis Denies: Hx Diabetes Cardiovascular History: Reports: Hx Hypertension, Other Cardiovascular Problems/ Disorders - IRREGULAR HEARTBEAT/MTV ALSO Denies: Hx Pacemaker/ICD GI History: Reports: Other GI Disorders - gastritis History: Reports: 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 Large bowel resection-BILATERAL CATARACT SURGERY . Left breast biopsy. Left kidney laproscopic REMOVAL OF BENIGN TUMOR. Right wrist sx- plate placement. Hemorrhoidectomy. Left knee menicus Infectious Disease History: No Infectious Disease History: Denies: Traveled Outside the [place] in Last 30 Days - Family History Known Family History: Positive: Cardiac Disease, Hypertension - Social History Alcohol Use: None Substance Use Type: Reports: None Smoking Status (MU): Never Smoked Tobacco Have You Smoked in the Last Year: No Review of Systems Positive: Chest Pain Negative: Myalgia - calf, Edema - calf Positive: Weakness All Other Systems Reviewed And Are Negative: Yes Physical Exam - Summary Physical Exam Summary: GENERAL: Patient is a well-developed and nourished F who is lying comfortable in the stretcher. Patient is not in any acute respiratory distress. HEAD AND FACE: Normocephalic EYES: PERRLA, EOMI x 2. EARS: Hearing grossly intact. MOUTH: Oropharynx within normal limits. NECK: Supple, trachea is midline, no adenopathy, no JVD, no carotid bruit. CHEST: Symmetric, no tenderness at palpation LUNGS: Clear to auscultation bilaterally. No wheezing or crackles. CVS: Bradycardic. S1 and S2 present, no murmurs or gallops appreciated. ABDOMEN: Soft, non-tender. Bowel sounds are normal. No abdominal abnormal pulsations. EXTREMITIES: Full ROM in all major joints, no edema, no cyanosis or clubbing. NEURO: Alert and oriented x 3. No acute neurological deficits. Speech is normal and follows commands. SKIN: Dry and warm Triage Information Reviewed: Yes Vital Signs On Initial Exam: Initial Vitals Temp Pulse Resp BP Pulse Ox 99 F 60 16 152/74 99 10/13/18 09:14 10/13/18 09:14 10/13/18 09:14 10/13/18 09:14 10/13/18 09:14 Vital Signs Reviewed: Yes Diagnostics - Vital Signs Vital Signs Temp Pulse Resp BP Pulse Ox 10/13/18 09:14 99 F 60 16 152/74 99 - Laboratory Result Diagrams: 10/13/18 10:02 10/13/18 10:02 Lab Statement: Any lab studies that have been ordered have been reviewed, and results considered in the medical decision making process. - Radiology CXR Radiology Interpretation Completed By: Radiologist Summary of Radiographic Findings: No active cardiopulmonary disease is noted. ED physician has reviewed this imaging report. - EKG 09:32 Cardiac Rate: Bradycardia - 53 EKG Rhythm: Sinus Rhythm Summary of EKG Findings: intraventricular conduction delay Chest Pain Course/Dx - Course Course Of Treatment: An 84 y/o female presents to [facility] with a chief complaint of intermittent CP since the night of 10/12/18. Her CXR showed no active cardiopulmonary disease. Her EKG showed sinus bradycardia at 53 bpm with intraventricular conduction delay. Lab results obtained and WNL. Dx: chest pain. The patiet will leave AMA. I discussed with the patient the risks of leaving AMA. - Diagnoses Provider Diagnoses: Chest pain - Provider Notifications Discussed Care Of Patient With: Maria Ines Yeh Time Discussed With Above Provider: 11:10 Instructed by Provider To: Other - Dr. Yeh was called for a possible admission but the patient will leave AMA. Discharge - Sign-Out/Discharge Documenting (check all that apply): Patient Departure - AMA - Discharge Plan Condition: Fair Disposition: AGAINST MEDICAL ADVICE Patient Education Materials: Chest Pain (ED) Referrals: Joshi,Mayo, DO [Medical Doctor] - (1-3 days) Rolando Orellana MD [Primary Care Provider] - (1-3 days) Additional Instructions: Follow up with your primary care physician and clock mechanic in 1-3 days. RETURN TO THE EMERGENCY DEPARTMENT FOR CHANGING OR WORSENING SYMPTOMS. - Billing Disposition and Condition Condition: FAIR Disposition: Against Medical Advice - Attestation Statements Document Initiated by Scribe: Yes Documenting Scribe: Jonathan Crawford Provider For Whom Scribe is Documenting (Include Credential): Rodrigo Frances MD Scribe Attestation: Jonathan Carvalho, scribed for Rodrigo Frances MD on 10/15/18 at 0149. Scribe Documentation Reviewed: Yes Provider Attestation: The documentation as recorded by the Jonathan alford accurately reflects the service I personally performed and the decisions made by me, Raheem Frances MD Status of Scribe Document: Viewed
--- OUTSIDE RECORDS SUMMARY | 2018-10-13 09:46 | XMS REPORT | Continuity of Care Document ---
:1935 External Reference #:[id number] Author Name Devon Bailey MD Address [address] [place] [address] Care Team Providers Name Role Phone Paul Orellana M.D. Care Team Information Lieutenant Shift Supervisor Unavailable Paul Orellana M.D. Primary Care Physician Unavailable Payers Type Date Identification Numbers Payment Provider Subscriber Policy Number: [id number] [place] [employer] [employer] Caroline Glasgow PayID: [id number] [address] [facility] [place] [address] Policy Number: [id number] [facility] Caroline Glasgow PayID: [id number] [address] [place] [address] Advance Directives Description No Information Available Problems Date Description Provider Status Onset: 12/12/2017 Chronic rhinitis Devon Bailey MD Active Onset: 12/12/2017 Localized swelling, mass and lump, neck Devon Bailey MD Active Onset: 09/25/2018 Benign paroxysmal positional vertigo Devon Bailey MD Active Onset: 08/28/2018 Arthralgia of temporomandibular joint Savanah Nevarez PA-C Active Onset: 05/04/2018 Atypical facial pain Devon Bailey MD Active Onset: 05/04/2018 Impacted cerumen Devon Bailey MD Active Onset: 05/04/2018 Otalgia Devon Bailey MD Active Family History Date Family Member(s) Problem(s) Comments General Heart Disease Social History Type Date Description Comments Sex Unknown Occupation Retired Tobacco Use Start: Unknown Never Smoked Cigarettes Tobacco Use Start: Unknown Never Smoked Cigars Tobacco Use Start: Unknown Never Smoked A Pipe Smoking Status Reviewed: 08/28/18 Never Smoked A Pipe Smokeless Tobacco Never Used Smokeless Tobacco ETOH Use Does not drink alcohol Tobacco Use Start: Unknown Patient has never smoked Allergies, Adverse Reactions, Alerts Date Description Reaction Status Severity Comments 09/12/2017 Haemophilus Influenza Vaccines Active 09/12/2017 Prevnar 13 Active Medications Medication Date Status Form Strength Qnty SIG Indications Ordering Provider Azelastine HCL 12/12 Active Solution 0.1% 30ml one puff J31.0 Devon (Nasal) both sides Ruparelia twice a day , Atenolol Active Tablets 25mg 1 tab daily Unknown Gabapentin Active Capsules 100mg take 1 Unknown /0000 capsule by mouth tid Levothyroxine Active Tablets 100mcg 1 tab daily Unknown Sodium Lorazepam Active Tablets 0.5mg take 1/2 Unknown 0000 tablet by mouth daily if needed for anxiety maximum daily dos Vitamin D3 Active Tablets 10,000 1 by mouth q [place], week Paul Castillo M.D. Calcium Active Tablets 1000mg daily [place] Paul Castillo M.D. Preservision Active Capsules Areds 2 1 by mouth Self Areds twice a day Pantoprazole Hx Tablets DR 20mg take 1 Unknown Sodium 0000 tablet by - mouth once 08/28 daily for weeks then if needed Azelastine HCL Hx Solution 0.1% 90ml 2 sprays in Jose N. (Nasal) each Strominge - nostrilk eriberto rogers MLuann 05/04 times day. Carafate Hx Suspension 1GM/10ML take 10 Unknown /0000 milliliters - by mouth 08/28 four times a day if needed Ibuprofen Hx Tablets 400mg take 1 Unknown /0000 tablet by - mouth every 08/28 4 to 6 hours /2018 if needed Immunizations Description No Information Available Vital Signs Date Vital Result Comment 08/28/2018 1:43pm Weight 126.00 lb Weight 57.154 kg Height 65 inches 5'5" Height in cm's 165.1 cm BMI (Body Mass Index) 21.0 kg/m2 05/04/2018 2:02pm Weight 126.00 lb Weight 57.154 kg Height 65 inches 5'5" Height in cm's 165.1 cm BMI (Body Mass Index) 21.0 kg/m2 12/12/2017 10:48am BP Systolic 147 mmHg BP Diastolic 81 mmHg Heart Rate 64 /min Respiratory Rate 17 /min Weight 126.00 lb Weight 57.154 kg Height 65 inches 5'5" Height in cm's 165.1 cm BMI (Body Mass Index) 21.0 kg/m2 09/12/2017 3:07pm BP Systolic 141 mmHg BP Diastolic 80 mmHg Heart Rate 63 /min Respiratory Rate 18 /min Weight 126.00 lb Weight 57.154 kg Height 65 inches 5'5" Height in cm's 165.1 cm BMI (Body Mass Index) 21.0 kg/m2 Results Description No Information Available Procedures Date Code Description Status 05/04/2018 34832 Tympanometry Completed Encounters Type Date Location Provider Dx Diagnosis Office Visit 09/25/2018 [facility] Devon Bailey H81.10 Benign paroxysmal 9:30a 11/14/07 vertigo, unspecified ear Office Visit 08/28/2018 [facility] Savanah Nevarez, H92.01 Otalgia, right ear 1:45p 11/14/07 PA-C M26.622 Arthralgia of left temporomandibular joint Office Visit 05/04/2018 [facility] Devon Bailey, H61.23 Impacted 2:00p 11/14/07 cerchema, bilateral H92.01 Otalgia, right ear H69.82 Other specified disorders of Eustachian tube, left ear G50.1 Atypical facial pain H61.23 Impacted cerumen, bilateral Office Visit 12/12/2017 11:00a [facility] 11/14/07 Devon Bailey J31.0 Chronic rhinitis R22.1 Localized swelling, mass and lump, neck Office Visit 09/12/2017 [facility] Jose Doan30.0 Vasomotor 3:15p 11/14/07 Arleen Freed rhinitis R59.0 Localized enlarged lymph nodes R05 Cough Plan of Treatment 09/25/2018 - Devon Bailey MD81.10 Benign paroxysmal vertigo, unspecified earComments:The patient symptoms are most in keeping with benign paroxysmal positional vertigo. This is explained to the patient. Gradually improving she denies any other new onset of ear pain ear symptoms including tinnitus or hearing loss she denies any other new, instructions were given regarding Cook- Cawthrone exercises.recheck back if symptoms have not resolved in one month
[2018-10-13 10:09] LABS: ABS Basophils 0 10^3/ul (0-0.2); ABS Eosinophils 0.1 10^3/ul (0-0.6); ABS Lymphocytes 0.7 10^3/ul (1.0-4.8); ABS Monocytes 0.4 10^3/ul (0-0.8); ABS Neutrophils 6.6 10^3/ul (1.5-7.7); ABS Nucleated RBC 0 10^3/ul; Eosinophil % 0.7 %; Hematocrit 39 % (35-47); Hemoglobin 12.7 g/dl (12.0-16.0); Lymphocyte % 8.6 %; Mean Corpuscular HGB Conc 33 g/dl (31-36); Mean Corpuscular Hemoglobin 29 pg (27-31); Mean Corpuscular Volume 87 fL (80-97); Mean Platelet Volume 7.5 fL (7.4-10.4); Nucleated Red Blood Cells % 0.1; Platelet Count 290 10^3/ul (150-450); Red Blood Count 4.46 10^6/ul (4.00-5.40); Red Cell Distribution Width 13 % (10.5-15); White Blood Count 7.8 10^3/ul (3.5-10.8)
[2018-10-13 10:33] LABS: EGFR Non-African American 64.9 (>60)
[2018-10-13 10:43] LABS: INR 0.94 (0.77-1.02)
[2018-10-13 16:44] VITALS: BP 124/59
--- NOTE | 2018-10-14 09:05 | CONS ---
[facility] MEDICINE CONSULTATION REPORT: DATE OF CONSULT: 10/13/18 PROVIDER: Corrie Oshea NP ATTENDING PHYSICIAN: Dr. Frances in the emergency room. CONSULTING PHYSICIAN: Dr. Maria Ines Yeh (dictated by Corrie Oshea NP). REASON FOR CONSULT: Chest pain. HISTORY OF PRESENT ILLNESS: Ms. Glasgow is an 83-year-old female with a past medical history significant for global amnesia, panic attacks, hypothyroidism, macular degeneration, diverticulitis, spinal stenosis, who presented to the emergency room today with complaints of feeling lightheaded and chest pain that resolved on its own. She states that she developed right-sided chest pain last night that went away when she got up at 6 o'clock this morning. She had no chest pain and then at 8, she again developed right-sided chest pain. She denied any palpitations. She denied any nausea or vomiting or diaphoresis with the chest pain. She reports that the chest pain is intermittent and feels like electrical pulses lasting approximately 1 minute. She also reports that she has been taking Zantac for the past several days. The patient denies any recent sick contacts. She denies any hematuria or dysuria, denies any fever or chills, denies any edema. Denies shortness of breath or chest pain with exertion. While in the emergency room, her pain has subsided and has not returned. She had routine lab work drawn, which was within normal limits. Her troponin is 0.00, 0.00, and 0.01. Given her presentation of chest pain, we were asked by the emergency room to see her in consultation. PAST MEDICAL HISTORY: Significant for: 1. Global amnesia in 2000. 2. Panic attacks. 3. Hypothyroidism. 4. History of diverticulitis. 5. History of double heart beats. 6. History of osteoporosis. 7. Macular degeneration. 8. Scoliosis. 9. Spinal stenosis. PAST SURGICAL HISTORY: History of removal of benign left renal mass complicated by a splenic hematoma, thyroid surgery, hysterectomy, colon resection. HOME MEDICATIONS: 1. Gabapentin 100 mg p.o. t.i.d. 2. Aspirin with caffeine 1 tablet p.o. daily. 3. Calcium 1000 mg p.o. daily. 4. Atenolol 25 mg p.o. daily. 5. Vitamin D 10,000 units p.o. daily. 6. Ranitidine 150 mg p.o. daily as needed. 7. Levothyroxine 100 mcg p.o. daily. 8. Lorazepam 0.25 mg p.o. daily p.r.n. anxiety. ALLERGIES: No known drug allergies. FAMILY HISTORY: The patient reports that her father had an aortic valve replacement, mother at the age of 83 due to natural causes, brother is alive and well and has a pacemaker. Her healthcare proxy is her niece, Corrie Glasgow, her phone number is [phone]. She is a DNR. SOCIAL HISTORY: The patient denies any tobacco, alcohol, or illicit drug use. She works as a volunteer. She is . REVIEW OF SYSTEMS: She denies any fever or chills, denies any unintended weight loss. She does report right-sided chest pain that has resolved. No edema. Her chest pain was associated with pulsation-type feeling lasting approximately 1 minute that came and went several times. Denies any cough, hemoptysis, or shortness of breath. She did report some nausea after eating breakfast. Denied any diarrhea. Denied abdominal pain, hematuria, or dysuria. Denies any focal weakness or sensory loss. Denies any visual complaints. Denies any dysphagia. Denies any arthralgias or myalgias. Denies any rashes or lesions, psychosis or anxiety. PHYSICAL EXAM: General: At this time, Ms. Glasgow is an 83-year-old female. She is sitting on the edge of the bed. She is not in any acute distress. She is alert and oriented x3. Vital Signs: Blood pressure 123/60, heart rate is 60, respirations 16, O2 saturation 98%, temperature was 99. HEENT: Head is atraumatic, normocephalic. Eyes: EOMs are intact. Sclerae are anicteric and not pale. Oral mucosa appears to be moist. Neck is supple. Lungs are clear to auscultation bilaterally. No wheezes, rales, or rhonchi. Cardiac: S1, S2. Regular rate and rhythm. No murmurs, rubs, or gallops. Abdomen is soft and nontender. Bowel sounds are present x4. Extremities: Pedal pulses are +2 bilaterally. No cyanosis or edema. She is able to move all 4 extremities with 5/5 strength. Neurologic: She is awake, alert, and oriented x3. There are no gross focal deficits. Skin is intact. DIAGNOSTIC STUDIES/LAB DATA: WBCs are 7.8, RBCs 4.46, hemoglobin 12.7, hematocrit was 39, platelet count was 290. INR was 0.94. Sodium 136, potassium 3.6, chloride 103, carbon dioxide was 28, anion gap 5, BUN was 21, creatinine 0.84, lactic acid was 1.0. Troponin was 0.00 and repeat troponin was 0.00 and repeat was 0.01. She had a chest x-ray, radiologist's impression: No active cardiopulmonary disease. IMPRESSION AND PLAN: Ms. Glasgow is an 83-year-old female with a past medical history significant for global amnesia, panic attacks, hypothyroidism, diverticulitis, macular degeneration, spinal stenosis, and remote history of atrial fibrillation who is currently in sinus rhythm, who presented to the emergency room with complaints of chest pain. Her initial troponins are negative. It was recommended that the patient stay for a stress test, but the patient reports that she does not want to stay until Tuesday to have a stress test. I recommended that the patient have a stress test but again she does not want to stay until she can receive her stress test. I will order an outpatient stress test for the patient for Tuesday. I have notified Dr. Frances from the emergency room and recommended that the patient stay for a repeat troponin in 3 hours. At this time, the patient is chest pain free. She has had no further episodes. Her RAY score is a 2 do to age and aspirin use, giving her 8% risk at 14 days of all-cause mortality of new or recurrent myocardial infarction or severe recurrent ischemia requiring revascularization. Her HEART score is a 3, score 0 to 3, 0.9 to 1.7 risk of adverse cardiac event, and the HEART score studied the patients were discharged who scored between 0 and 3 and her score was a 3. I have recommended that the patient stay for stress test but at this time the patient does not want to stay for further evaluation. I have informed Dr. Frances in the emergency room and she will discharge the patient against medical advice. I have informed Dr. Frances that I have sent an order for an outpatient stress test. TIME SPENT: Time spent on this consultation was 60 minutes, greater than half of that time was spent with the patient at the bedside reviewing events leading thus far to her hospitalization, performing physical exam, and recommending my plan of care. I have discussed this with my attending, Dr. Maria Ines Yeh; she is in agreement with my plan. I have also discussed this with Dr. Frances in the emergency room and she will resume care of the patient. CORRIE OSHEA, URB[employer] GARDENING SPECIALIST [id number]/[facility] [place] #: [id number] BEN
== END | disposition left against medical advice (07) ==
LOC: ED 09:05
DX: R07.9 Chest pain, unspecified (principal); Z79.01 Long term (current) use of anticoagulants
CPT/HCPCS: 36415; 71045; 80053; 83605; 83880; 84484; 85025; 85379; 85610; 85730; 93005; 99284; A9270-GY

== ENCOUNTER 2019-10-27 09:59 | Emergency (ER) | payer MEDICARE ==
--- OUTSIDE RECORDS SUMMARY | 2019-10-27 10:05 | XMS REPORT | Continuity of Care Document ---
:1935 External Reference #:[id number] Author Name Olivier Mcgee MD (transmitted by agent of provider Arin Hernandez) Address [address] [place] [address] Care Team Providers Name Role Phone Pain Clinic - Pain Care Team Information Property Supervisor [phone] Benedict Rose MD - Cardiovascular Care Team Information Property Supervisor Disease Rajendra Hsieh MD - Dermatology Care Team Information Property Supervisor Ulises Decker MD - Gastroenterology Care Team Information Property Supervisor Maria Ines Yeh DO - Hospitalist Care Team Information Property Supervisor Problems Active Problems Provider Date Paroxysmal atrial fibrillation Rolando Orellana M.D.,FACP Onset: 03/03/2018 Hypothyroidism Maria Luisa Rivers M.D. Onset: 02/06/2015 Mixed hyperlipidemia Maria Luisa Rivers M.D. Onset: 02/06/2015 Osteoporosis Maria Luisa Rivers M.D. 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, with aura primarily Headache Lizz Spears MD Onset: 06/20/2017 Chronic gastritis Rolando Orellana M.D.,FACP Onset: 08/16/2017 Note: recurrent Anxiety disorder Rolando Orellana M.D.,FACP Onset: 03/03/2018 Chest pain Corrie Oshea NP Onset: 10/13/2018 Restless legs Aldair Noriega MD Onset: 11/10/2018 Chill Olivier Mcgee MD Onset: 09/03/2019 Malaise and fatigue Olivier Mcgee MD Onset: 09/03/2019 Gastroesophageal reflux disease Olivier Mcgee MD Onset: 09/03/2019 Social History Type Date Description Comments Sex Unknown Tobacco Use Start: Unknown Never Smoked Cigarettes Smoking Status Reviewed: 09/03/19 Never Smoked Cigarettes ETOH Use 01/19/2018 Denies alcohol use Tobacco Use Start: Unknown Patient has never smoked Recreational Drug Use Never Used Drugs Exercise Type/Frequency Exercises regularly Exercise Type/Frequency 1-3 miles per day until moved here Allergies, Adverse Reactions, Alerts Active Allergies Reaction Severity Comments Date Pneumococcal Vaccines "deathly ill" 05/14/2016 Influenza Vaccines "deathly ill" 05/14/2016 Inactive Allergies NKDA 01/30/2015 Medications Active Medications SIG Qnty Indications Ordering Date Provider Gabapentin 1 by mouth three 270caps Aldair Noriega, 11/15/2018 100mg times a day Capsules Anacin Take 1/2 to 1 Mayo Joshi, 03/14/2018 400-32mg Tablets ttablet daily as DO FACC needed for back pain or headache Synthroid 1 by mouth every 90tabs Maria Ines Yeh, 100mcg day DO Tablets Calcium 1000 1 by mouth every Unknown 1000mg day Tablets Preservision 2 by mouth twice Unknown Tablets daily Lorazepam 1 /2 tab by mouth 30tabs Maria Ines Yeh, 0.5mg Tablets as needed for DO anxiety Vitamin D3 High 1 tablet po once Unknown Potency week [id number] Atenolol 1 by mouth every 90tabs Mayo Joshi, 25mg Tablets day at night DO FACC History Medications Zofran take 1 tab every 6 30tabs Olivier Mcgee MD 04/12/2019 - 4mg Tablets hours as needed for 07/17/2019 vomiting. Medications Administered in Office Medication SIG Qnty Indications Ordering Provider Date PPD Injection Nurse Visit C 09/14/2016 PPD Injection Nurse Visit C 04/09/2015 Immunizations Description No Information Available Vital Signs Date Vital Result Comment 09/03/2019 1:35pm Height 66 inches 5'6" Weight 119.50 lb Heart Rate 59 /min BP Systolic 125 mmHg BP Diastolic 77 mmHg Body Temperature 98.4 F O2 % BldC Oximetry 98 % BMI (Body Mass Index) 19.3 kg/m2 07/18/2019 10:11am Height 66 inches 5'6" Weight 121.00 lb Heart Rate 58 /min BP Systolic Sitting 112 mmHg BP Diastolic Sitting 60 mmHg Respiratory Rate 15 /min BMI (Body Mass Index) 19.5 kg/m2 Results Test Date Facility Test Result H/L Range Note Laboratory test 09/03/2019 [facility] TSH (Thyroid <pending> finding [address] Stim Horm) [place] [address] [phone] Free T4 (Free Thyroxine) <pending> T3 Total <pending> Procedures Date Code Description Status 09/12/2018 471004550 Diabetic Retinal Eye Exam Completed 03/11/2015 [id number] Mammogram Completed 11/14/2013 [id number] Colonoscopy Completed Medical Devices Description No Information Available Encounters Type Date Location Provider Dx Diagnosis Office Visit 07/18/2019 [facility] Aldair Noriega, G40.909 Epilepsy , unsp, 10:15a [facility] not intractable, without status epilepticus G25.81 Restless legs syndrome Office Visit 07/13/2019 10:20a [facility] [address] Internal Olivier Mcgee K21.9 Gastro- esophageal Medicine - reflux disease without [address] esophagitis N28.1 Cyst of kidney, acquired K59.00 Constipation, unspecified I48.0 Paroxysmal atrial fibrillation Office Visit 03/28/2019 DO Not Use Care Maria Ines M77.12 Lateral 11:40a Connections Senner, DO epicondylitis, left [facility] [address] elbow Assessments Date Code Description Provider 09/03/2019 K21.9 Gastro-esophageal reflux disease without Olivier Mcgee MD esophagitis 09/03/2019 E03.9 Hypothyroidism, unspecified Olivier Mcgee MD 09/03/2019 R53.83 Other fatigue Olivier Mcgee MD 09/03/2019 R68.83 Chills (without fever) Olivier Mcgee MD 07/18/2019 G40.909 Epilepsy, unspecified, not intractable, without Aldair Noriega MD status epile 07/18/2019 G25.81 Restless legs syndrome Aldair Noriega MD 07/13/2019 K21.9 Gastro-esophageal reflux disease without Olivier Mcgee MD esophagitis 07/13/2019 N28.1 Cyst of kidney, acquired Olivier Mcgee MD 07/13/2019 K59.00 Constipation, unspecified Olivier Mcgee MD 07/13/2019 I48.0 Paroxysmal atrial fibrillation Olivier Mcgee MD 03/28/2019 M77.12 Lateral epicondylitis, left elbow Maria Ines Yeh DO Plan of Treatment Future Appointment(s):10/01/2019 11:00 am - Maria Ines Yeh DO at [facility] [address] Internal Medicine - [address] - Olivier Mcgee MDK21.9 Gastro-esophageal reflux disease without esophagitisComments:Take the pepcid masgkP68.9 Hypothyroidism, unspecifiedComments:We will check your thyroid levels.R53.83 Other yvsosgyO31.83 Chills (without fever)New Labs:Urinalysis Profile, Ordered: Functional Status Description No Information Available Mental Status Description No Information Available Referrals Refer to Reason for Referral Status Appt Date Ochoa Echeverria MD Sent [address] [place] [address] [place] [address] [phone]
--- OUTSIDE RECORDS SUMMARY | 2019-10-27 10:05 | XMS REPORT | Continuity of Care Document ---
:1935 External Reference #:[id number] Author Name Jun Moncada MD (transmitted by agent of provider Lupe Benitez) Address [address] [place] [id number] Care Team Providers Name Role Phone Pain Clinic - Pain Care Team Information University Administrator [phone] Benedict Rose MD - Cardiovascular Care Team Information University Administrator Disease Rajendra Hsieh MD - Dermatology Care Team Information University Administrator [phone] Ulises Decker MD - Gastroenterology Care Team Information University Administrator Maria Ines Yeh DO - Hospitalist Care Team Information University Administrator Problems Active Problems Provider Date Paroxysmal atrial [...] Unknown Never Smoked Cigarettes Smoking Status Reviewed: 09/27/19 Never Smoked Cigarettes ETOH Use 01/19/2018 Denies [...] 1 tablet po once Unknown Potency week [id number] Atenolol 1 by mouth every 90tabs Mayo [...] Available Vital Signs Date Vital Result Comment 09/27/2019 10:36am Height 66 inches 5'6" Weight 122.00 lb Heart Rate 68 /min BP Systolic 120 mmHg BP Diastolic 68 mmHg Respiratory Rate 16 /min Pain Level 5 BMI (Body Mass Index) 19.7 kg/m2 09/03/2019 1:35pm Height 66 inches 5'6" Weight 119.50 lb Heart Rate 59 /min BP Systolic 125 mmHg BP Diastolic 77 mmHg Body Temperature 98.4 F O2 % BldC Oximetry 98 % BMI (Body Mass Index) 19.3 kg/m2 Results Test Acquired Date Facility Test Result H/L Range Note Urinalysis Profile 09/05/2019 [facility] Urine Color Straw [address] [place] [address] [phone] Urine Appearance Clear Urine Specific [place] 1.003 Low 1.010-1.030 Urine pH 6.0 Normal 5-9 Urine Urobilinogen Negative Negative Urine Ketones Negative Negative Urine Protein Negative Negative Urine Leukocytes Negative Negative Urine Blood Negative Negative Urine Nitrite Negative Negative Urine Bilirubin Negative Negative Urine Glucose Negative Negative CBC Auto 09/05/2019 [facility] White Blood 6.3 10^3/uL Normal 3.5-10.[address] [place] [address] [phone] Red Blood Count 4.54 10^6/uL Normal 3.70-4.87 Hemoglobin 13.1 g/dL Normal 12.0-16.0 Hematocrit 40 % Normal 35-47 Mean Corpuscular Volume 87 fL Normal 80-97 Mean Corpuscular Hemoglobin 29 pg Normal 27-31 Mean Corpuscular HGB Conc 33 g/dL Normal 31-36 Red Cell Distribution Width 14 % Normal 10-15 Platelet Count 314 10^3/uL Normal 150-450 Mean Platelet Volume 7.8 fL Normal 7.4-10.4 Abs Neutrophils 4.2 10^3/uL Normal 1.5-7.7 Abs Lymphocytes 1.4 10^3/uL Normal 1.0-4.8 Abs Monocytes 0.5 10^3/uL Normal 0-0.8 Abs Eosinophils 0.2 10^3/uL Normal 0-0.6 Abs Basophils 0.1 10^3/uL Normal 0-0.2 Abs Nucleated RBC 0.0 10^3/uL Granulocyte % 66.2 % Lymphocyte % 22.1 % Monocyte % 8.4 % Eosinophil % 2.4 % Basophil % 0.9 % Nucleated Red Blood Cells % 0.0 Laboratory 09/05/2019 [facility] TSH (Thyroid 1.76 Normal 0.34 -5.60 test finding [address] Stim Horm) mcIU/[place] [address] [phone] Free T4 (Free Thyroxine) 1.13 ng/dL High 0.61-1.12 T3 Total 97 ng/dL Normal 87-178 Laboratory test 09/03/2019 [facility] TSH (Thyroid <pending> finding [address] Stim Horm) [place] [address] [phone] Free T4 (Free Thyroxine) <pending> T3 Total <pending> Procedures Date Code Description Status 09/12/2018 [id number] Diabetic Retinal Eye Exam Completed 03/11/2015 [id number] Mammogram Completed 11/14/2013 [id number] Colonoscopy Completed Medical Devices Description No Information Available Encounters Type Date Location Provider Dx Diagnosis Office Visit 09/03/2019 [facility] Internal Olivier Mcgee MD K21.9 Gastro-esophageal 1:20p Medicine - [address] reflux disease without esophagitis E03.9 Hypothyroidism, unspecified R53.83 Other fatigue R68.83 Chills (without fever) Office Visit 07/18/2019 [place] Aldair Noriega, G40.909 Epilepsy, unsp, 10:15a Neurologic MD not intractable, [facility] without status epilepticus G25.81 Restless legs syndrome Office Visit 07/13/2019 10:20a [facility] Internal Olivier Mcgee, K21.9 Gastro- esophageal Medicine - MD reflux disease without [address] esophagitis N28.1 Cyst of kidney, acquired K59.00 Constipation, unspecified I48.0 Paroxysmal atrial fibrillation Office Visit 03/28/2019 DO Not Use Care Maria Ines M77.12 Lateral 11:40a Connections Senner, DO epicondylitis, left [facility] elbow Assessments Date Code Description Provider 09/27/2019 M54.5 Low back pain Jun Moncada MD 09/27/2019 M54.16 Radiculopathy, lumbar region Jun Moncada MD 09/03/2019 K21.9 Gastro-esophageal reflux disease without Olivier Mcgee MD esophagitis 09/03/2019 E03.9 Hypothyroidism, unspecified Olivier Mcgee MD 09/03/2019 R53.83 Other fatigue Olivier Mcgee MD 09/03/2019 R68.83 Chills (without fever) Olivier Mcgee MD 07/18/2019 G40.909 Epilepsy, unspecified, not intractable, Aldair Noriega MD without status epile 07/18/2019 G25.81 Restless legs syndrome [...] am - Maria Ines Yeh DO at [facility] Internal Medicine - [address]/27/2018 - Jun Moncada, MDM54.5 Low back painReferral :Syd Martínez MD, Surgery,GnljtjvxmbV79.16 Radiculopathy, lumbar regionFollow up:Follow up: referral to Dr. Martínez Functional Status Description No Information Available Mental Status Description No Information Available Referrals Refer to Dr Reason for Referral Status Appt Date Syd Martínez MD Lumbago, R lumbar radiculopathy Wants epidural Created cortisone injection, prior history of multiple, recent MRI [address] [facility] [place] [address] [place] [address] [phone] Ochoa Echeverria MD Sent [address] [facility] [address] [place], [place] [address] [phone]
--- OUTSIDE RECORDS SUMMARY | 2019-10-27 10:05 | XMS REPORT | Continuity of Care Document ---
:1935 External Reference #:[id number] Author Name Maria Ines Yeh DO (transmitted by agent of provider Tamara Rossi) Address [address] [place] [address] Care Team Providers Name Role Phone Pain Clinic - Pain Care Team Information Steam Finisher [phone] Benedict Rose MD - Cardiovascular Care Team Information Steam Finisher Disease Rajendra Hsieh MD - Dermatology Care Team Information Steam Finisher Ulises Decker MD - Gastroenterology Care Team Information Steam Finisher Maria Ines Yeh DO - Hospitalist Care Team Information Steam Finisher Problems Active Problems Provider Date Paroxysmal atrial [...] Restless legs Aldair Noriega MD Onset: 11/10/2018 Rakesh Mcgee MD Onset: 09/03/2019 Malaise and fatigue Olivier Mcgee MD Onset: 09/03/2019 Gastroesophageal reflux disease Olivier Mcgee MD Onset: 09/03/2019 Social History Type Date Description Comments Sex Unknown Tobacco Use Start: Unknown Never Smoked Cigarettes Smoking Status Reviewed: 10/01/19 Never Smoked Cigarettes ETOH Use 01/19/2018 Denies [...] 1 tablet po once Unknown Potency week [id number] Atenolol 1 by mouth every 90tabs Mayo [...] Available Vital Signs Date Vital Result Comment 10/01/2019 11:07am Height 64.25 inches 5'4.25" Weight 121.50 lb Heart Rate 47 /min BP Systolic Sitting 133 mmHg BP Diastolic Sitting 69 mmHg Body Temperature 97.7 F Pain Level 4 lumbar BMI (Body Mass Index) 20.7 kg/m2 09/27/2019 10:36am Height 66 inches 5'6" Weight 122.00 lb Heart Rate 68 /min BP Systolic 120 mmHg BP Diastolic 68 mmHg Respiratory Rate 16 /min Pain Level 5 BMI (Body Mass Index) 19.7 kg/m2 Results Test Acquired Date Facility Test Result H/L Range Note Urinalysis Profile 09/05/2019 [facility] Urine Color Straw [address] [place] [address] [phone] Urine Appearance Clear Urine Specific [place] 1.003 Low 1.010-1.030 Urine pH 6.0 Normal 5-9 Urine Urobilinogen Negative Negative Urine Ketones Negative Negative Urine Protein Negative Negative Urine Leukocytes Negative Negative Urine Blood Negative Negative Urine Nitrite Negative Negative Urine Bilirubin Negative Negative Urine Glucose Negative Negative CBC Auto 09/05/2019 [facility] White Blood 6.3 10^3/uL Normal 3.5-10.[address] [place] [address] [phone] Red Blood Count 4.54 10^6/uL Normal 3.70-4.87 [...] Red Blood Cells % 0.0 Laboratory 09/05/2019 [facility] TSH (Thyroid 1.76 Normal 0.34 -5.60 test finding [address] Stim Horm) mcIU/[place] [address] [phone] Free T4 (Free Thyroxine) 1.13 ng/dL High 0.61-1.12 T3 Total 97 ng/dL Normal 87-178 Laboratory test 09/03/2019 [facility] TSH (Thyroid <pending> finding [address] Stim Horm) [place] [address] [phone] Free T4 (Free Thyroxine) <pending> T3 Total <pending> Procedures Date Code Description Status 09/12/2018 [id number] Diabetic Retinal Eye Exam Completed 03/11/2015 [id number] Mammogram Completed 11/14/2013 [id number] Colonoscopy Completed Medical Devices Description No Information Available Encounters Type Date Location Provider Dx Diagnosis Office Visit 09/03/2019 [facility] Internal Olivier Mcgee MD K21.9 Gastro-esophageal 1:20p Medicine - [address] reflux disease without esophagitis E03.9 Hypothyroidism, unspecified R53.83 Other fatigue R68.83 Chills (without fever) Office Visit 07/18/2019 [place] Aldair Noriega, G40.909 Epilepsy, unsp, 10:15a Neurologic MD not intractable, [facility] without status epilepticus G25.81 Restless legs syndrome Office Visit 07/13/2019 10:20a [facility] Internal Olivier Mcgee K21.9 Gastro- esophageal Medicine - MD reflux disease without [address] esophagitis N28.1 Cyst of kidney, acquired K59.00 Constipation, unspecified I48.0 Paroxysmal atrial fibrillation Assessments Date Code Description Provider 10/01/2019 Z00.00 Encounter for general adult medical Maria Ines Yeh, examination without abnormal findings 10/01/2019 R00.1 Bradycardia, unspecified Maria Ines Yeh, 10/01/2019 R53.1 Weakness Maria Ines Yeh, DO 09/27/2019 M54.5 Low back pain Jun Moncada [...] I48.0 Paroxysmal atrial fibrillation Olivier Mcgee MD Plan of Treatment 09/27/2019 - Jun Moncada, MDM54.5 Low back painReferral:Syd Martínez MD, Surgery,JlevbanpawI53.16 Radiculopathy, lumbar regionFollow up:Follow up: referral to Dr. Martínez Functional Status Description No Information Available Mental Status Description No Information Available Referrals Refer to Dr Reason for Referral Status Appt Jas Pyle MD Chronic LBP, has received 10-15 injections Sent over the years at [facility]. She would like to establish where she can have access to Lumbar injections. [address] [place] [address] [phone] Syd Martínez MD Lumbago, R lumbar radiculopathy Wants epidural Created cortisone injection, prior history of multiple, recent MRI [address] [facility] [place] [address] [phone]
--- NOTE | 2019-10-27 10:33 | UC ---
Dizzy HPI HPI Summary: CHIEF COMPLAINT and HPI: This is a 84-year-old female who comes to the urgent care center complaining of nausea, dizziness, and point tenderness in the left lateral thorax in the area of T 10 as well as discomfort to touch in her upper left arm and shoulder. Patient states that she was so worried about a heart problem that this kept her up last night. She has had no vomiting, no sweating or radiation of a crushing chest pain to her jaw or numbness going down her left arm. She has no pain radiating to her back. She states that she "didn't sleep well" and that she had a little pain that was intermittent in one spot. She states that she has increased her exercise yesterday, which included carrying things and pulling at a glass door. She has also had some nausea and states that "I get nervous." . She also states that at times, "my heart beats wildly." . She did not experience this during this episode. VITAL SIGNS & SaO2 REVIEWED. Within normal limits unless noted here. 150/78. NURSES NOTE REVIEWED. "pt with nausea, and left side/chest pain radiating to her back. she stated she was dizzy right before she decided to come in. She also felt weak." . This is - History Of Current Complaint Chief Complaint: UCChestPain Stated Complaint: DIZZY Time Seen by Provider: 10/27/19 10:25 Pain Intensity: 2 - Allergies/Home Medications Allergies/Adverse Reactions: Allergies Allergy/AdvReac Type Severity Reaction Status Date / Time environmental Allergy Congestion Uncoded 10/27/19 10:15 PMH/Surg Hx/FS Hx/Imm Hx - Additional Past Medical History Additional PMH: PAST MEDICAL HISTORY- CHRONIC and RECURRENT HEALTH PROBLEM LIST REVIEWED. Information relevant to present complaint: EPISODE OF ATRIAL FIBRILLATION AND FREQUENT ANXIETY. VISIT HISTORY REVIEWED. MEDICATIONS & ALLERGIES REVIEWED. patient is taking Synthroid and atenolol. HYPERTENSION STATUS:taking atenolol. FAMILY HISTORY: abdominal aneurysm Positive for: hypertension, cardiovascular disease, stroke, diabetes, cancer. Patient denies family history of: hypertension, cardiovascular disease, stroke, diabetes, cancer. SOCIAL HISTORY: Smoker: no Home: alone Employment: retired from [employer] Previously Healthy: No Other History Of: Anticoagulant Therapy - asa - stopped taking recently second to gastritis - Surgical History Surgical History: Yes Surgery Procedure, Year, and Place: Hysterectomy-THYROIDECTOMY 2011. Large bowel resection-BILATERAL CATARACT SURGERY 1999'. Left breast biopsy. Left kidney laproscopic REMOVAL OF BENIGN TUMOR. Right wrist sx- plate placement. Hemorrhoidectomy. Left knee menicus. D&C. neuroma on foot - Family History Known Family History: Positive: Cardiac Disease, Hypertension - Social History Alcohol Use: None Substance Use Type: None Smoking Status (MU): Never Smoked Tobacco Have You Smoked in the Last Year: No Review of Systems All Other Systems Reviewed And Are Negative: Yes Constitutional: Positive: Negative Respiratory: Positive: Negative Cardiovascular: Positive: Chest Pain - left point tenderness with palpation Gastrointestinal: Positive: Negative Genitourinary: Positive: Negative Neurological: Positive: Other - intermitten dizziness Is Patient Immunocompromised?: No Physical Exam - Summary Physical Exam Summary: Appearance: The patient is well-appearing, is in no pain or distress, and is well-nourished. Eyes: Conjunctiva are clear. Pupils are equal and reactive to light and accommodation. Extra ocular muscle movement is intact. ENT: The hearing is grossly normal, the pharynx is normal, and the TMs are normal. There is no muffled or hoarse voice. No stridor. Neck: The neck is supple and there is no lymphadenopathy. Respiratory: The chest is non-tender to palpation and without crepitus. The lungs are clear, there are normal breath sounds, and there is no respiratory distress. No wheezes, rales or rhonchi. Cardiovascular: Heart sounds reveal a regular rate and rhythm. There are no clicks, rubs or murmurs. There are no carotid bruits or thrills. Circulation is grossly intact. Tender to palpation left anterior axillary line at T8-10. Mild discomfort in axilla and muscle in left lower back. Abdomen: The abdomen is soft and nontender. There is no organomegaly. Bowel sounds are present and within normal limits. No point tenderness at McBurneys point. No CVA tenderness. Musculoskeletal: Strength is intact. The patient moves all extremities. Neurological: The patient is alert. Motor and sensory are examination grossly intact. Speech is normal. Psychological: The patient displays age appropriate behavior, and is conversant. GCS=15. Skin: Negative for rashes. Triage Information Reviewed: Yes Vital Signs: Initial Vital Signs Temp 98.8 F 10/27/19 10:08 Pulse 63 10/27/19 10:08 Resp 18 10/27/19 10:08 BP 150/78 10/27/19 10:08 Pulse Ox 100 10/27/19 10:08 Dizzy Course/Dx - Course Course Of Treatment: This is a 84-year-old female who comes to the urgent care center complaining of nausea, dizziness, and point tenderness in the left lateral thorax in the area of T 10 as well as discomfort to touch in her upper left arm and shoulder. Patient states that she was so worried about a heart problem that this kept her up last night. She has had no vomiting, no sweating or radiation of a crushing chest pain to her jaw or numbness going down her left arm. She has no pain radiating to her back. She states that she "didn't sleep well" and that she had a little pain that was intermittent in one spot. She states that she has increased her exercise yesterday, which included carrying things and pulling at a glass door. She has also had some nausea and states that "I get nervous." She also states that at times, "my heart beats wildly." She did not experience this during this episode. Her past medical history is significant for possible A fib , although her electrical technology instructor has assured her that she is not in atrial fibrillation at this time. She is also high both thyroid, has had an episode of global amnesia, and according to her record she has had panic attacks. She was admitted to [facility] on October 13, 2018 when her troponins were checked and were negative. Stress test was recommended, but she chose not to stay to complete this test. Her EKG today showed a sinus rhythm of 68 with no ischemia and no ectopy. Her chest x-ray showed no acute process. Examination showed point tenderness in the left axillary anterior line with palpation. There is no significant pain with movement of the left arm. My diagnosis is chest wall pain and anxiety. The patient knows to go directly to the ER for any repeat episode or any different chest symptoms. X RAY FINDINGS: The heart and mediastinum are normal in size and contour. The lungs are grossly clear. There is no evidence of large pleural effusion. Visualized bones are normal for the patient's age. There is no radiographic evidence of free air beneath the diaphragm IMPRESSION: No radiographic evidence of acute cardiopulmonary disease. - Differential Dx/Diagnosis Differential Diagnosis/HQI/PQRI: Benign Paroxysmal Positional Vertigo, Coronary Artery Disease, Dysrhythmia, Labyrinthitis, Meniere's Disease Provider Diagnosis: Chest wall discomfort Discharge ED - Sign-Out/Discharge Documenting (check all that apply): Patient Departure All imaging exams completed and their final reports reviewed: Yes - Discharge Plan Condition: Stable Disposition: HOME Patient Education Materials: Chest Pain (DC) Referrals: Maria Ines Yeh DO [Primary Care Provider] - Additional Instructions: WE DISCUSSED: PLEASE SEEK CARE AT THE EMERGENCY DEPARTMENT IF SYMPTOMS WORSEN OR IF NEW SYMPTOMS DEVELOP. FOLLOW UP WITH YOUR PRIMARY CARE PHYSICIAN IF CONDITION CONTINUES BEYOND 3 DAYS WITHOUT IMPROVEMENT. YOUR DIAGNOSIS IS: CHEST WALL PAIN; anxiety. YOUR CHEST X RAY is normal. YOUR PRESCRIPTION RECOMMENDATION IS: NONE OTHER INSTRUCTIONS: Hypertension Discharge Instructions: Your blood pressure reading today was 150/78 , indicating HYPERTENSION. Follow- up with your primary care provider within 4 weeks for blood pressure check and appropriate recommendations and treatment, as needed. FOR PAIN AND/OR SLEEP: For pain: Ibuprofen (Motrin and other brand names) 400-600mg PLUS acetaminophen (Tylenol and other brand names) 500mg - 1000mg every 8 hours. If you have any repeat episodes that are different from today's concern, go to the Emergency Department for more extensive evaluation. You can also take an Ativan for anxiety. - Billing Disposition and Condition Condition: STABLE Disposition: Home
[2019-10-27] MEDS ORDERED: Ondansetron ODT TAB* 4 MG PO ONE (11:01)
[2019-10-27 12:32] VITALS: BP 136/70
== END 2019-10-27 12:57 | disposition home or self-care (01) ==
LOC: UCEAST 09:59
DX: R07.89 Other chest pain (principal); F41.9 Anxiety disorder, unspecified; R11.0 Nausea; Z91.09 Other allergy status, other than to drugs and biological substances
CPT/HCPCS: 71046; 93005; 99211; A9270-GY; G0463

== ENCOUNTER 2019-11-25 19:42 | Emergency (ER) | payer MEDICARE ==
--- NOTE | 2019-11-25 21:12 | ED ---
Palpitations / Dysrhythmia - HPI Summary HPI Summary: The patient is an 84 y/o female presenting to [facility] with a chief complaint of fast palpitations onset around 1745 tonight. She reports that she has had cardiac issues since 2004 with tachycardia, and then she had an episode of atrial fibrillation in 2018. Her negative spotter in [facility] has not diagnosed her with atrial fibrillation since it had spontaneously resolved. She had an episode tonight where she felt a fast heart rate that she had not been able to measure as it was beating too fast, but she called her negative spotter, who recommended she take an Atenolol and Lorazepam, and if her symptoms did persisted to go to the ED. Since her heart rate continued to be elevated at 1830, she came to the ED. However, she is feeling better now. She endorses mild lightheadedness initially that resolved. She denies any SOB. She also notes some anxiety with the episode. Symptoms currently rated 2/10 in severity. She only had one Atenolol today, which is what she takes daily. She is not on any anticoagulants. She notes that she has recently been dealing with a gastric issue and is scheduled for an endoscopy this week. PMHx: HLD, gastritis. FHx: cardiac disease. Nonsmoker, no EtOH, no substance use. Medications reviewed. Allergies noted. - History of Current Complaint Chief Complaint: EDDysrhythmPalp Time Seen by Provider: 11/25/19 21:02 Hx Obtained From: Patient Onset/Duration: Sudden Onset, Still Present Severity Initially: Moderate Severity Currently: Mild Character: Fast Aggravating: Nothing Alleviating: Nothing Associated Signs & Symptoms: Lightheadedness - Allergy/Home Medications Allergies/Adverse Reactions: Allergies Allergy/AdvReac Type Severity Reaction Status Date / Time environmental Allergy Congestion Uncoded 11/25/19 19:48 PMH/Surg Hx/FS Hx/Imm Hx Endocrine/Hematology History: Reports: Hx Anticoagulant Therapy - asa - stopped taking recently second to gastritis Denies: Hx Diabetes Cardiovascular History: Reports: Hx Hypercholesterolemia, Other Cardiovascular Problems/Disorders - IRREGULAR HEARTBEAT Denies: Hx Angina, Hx Coronary Artery Disease, Hx Hypertension, Hx Myocardial Infarction, Hx Pacemaker/ICD GI History: Reports: Other GI Disorders - gastritis History: Reports: 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 Large bowel resection-BILATERAL CATARACT SURGERY . Left breast biopsy. Left kidney laproscopic REMOVAL OF BENIGN TUMOR. Right wrist sx- plate placement. Hemorrhoidectomy. Left knee menicus. D&C. neuroma on foot Infectious Disease History: No Infectious Disease History: Denies: Traveled Outside the [place] in Last 30 Days - Family History Known Family History: Positive: Cardiac Disease, Hypertension - Social History Alcohol Use: None Hx Substance Use: No Substance Use Type: Reports: None Hx Tobacco Use: No Smoking Status (MU): Never Smoked Tobacco Have You Smoked in the Last Year: No Review of Systems Positive: Palpitations - fast Negative: Shortness Of Breath Neurological: Other - mild lightheadedness (resolved) Positive: Anxious All Other Systems Reviewed And Are Negative: Yes Physical Exam - Summary Physical Exam Summary: Appearance: Well-appearing, Well-nourished, lying in bed comfortably Skin: Warm, dry, no obvious rash Eyes: sclera anicteric, no conjunctival pallor ENT: mucous membranes moist, pharynx appears normal Neck: Supple, nontender Respiratory: Clear to auscultation, no signs of respiratory distress Cardiovascular: Irregularly irregular rhythm with controlled rate. No murmurs. Normal distal pulses in tibial and radial bilaterally. Abdomen: Soft, nontender, normal active bowel sounds present Musculoskeletal: Normal, Strength/ROM Intact Neurological: A&Ox3, awake and alert, mentation is normal, speech is fluent and appropriate Psychiatric: affect is normal, does not appear anxious or depressed Triage Information Reviewed: Yes Vital Signs On Initial Exam: Initial Vitals Temp Pulse Resp BP Pulse Ox 98.7 F 73 16 137/80 96 11/25/19 19:47 11/25/19 19:47 11/25/19 19:47 11/25/19 19:47 11/25/19 19:47 Vital Signs Reviewed: Yes Procedures - Sedation Patient Received Moderate/Deep Sedation with Procedure: No Diagnostics - Vital Signs Vital Signs Temp Pulse Resp BP Pulse Ox 11/25/19 19:47 98.7 F 73 16 137/80 96 - Laboratory Result Diagrams: 11/25/19 21:54 11/25/19 21:54 Lab Statement: Any lab studies that have been ordered have been reviewed, and results considered in the medical decision making process. - EKG 1953 Cardiac Rate: Other Rate - 73 bpm EKG Rhythm: Atrial Fibrillation Summary of EKG Findings: Atrial fibrillation at 73 BPM. P waves, QRS complex, and T waves are within normal limits, T waves and intervals are normal. ED physician has reviewed and interpreted this EKG. Re-Evaluation - Re-Evaluation First Eval Re-Evaluation Time: 23:30 Comment: We discussed all results and plan for discharge. Course/Dx - Course Course Of Treatment: 84 y/o female presenting with concern for fast heart rate onset at 1745 and persisting until now with mild improvement despite Atenolol use. She had lightheadedness initially which has since resolved. Physical exam reveals irregularly irregular rhythm with controlled rate. EKG at 1953 reveals atrial fibrillation at 73 BPM but is otherwise normal without acute changes. Blood work obtained without significant abnormality. Patient is clear for discharge home. We discussed all results and addressed all concerns she has. She is prescribed Eliquis but is advised that she should not start taking it until her negative spotter agrees following her procedure. She understands and agrees with this plan. - Diagnoses Provider Diagnoses: Atrial fibrillation with controlled ventricular rate Discharge ED - Sign-Out/Discharge Documenting (check all that apply): Patient Departure - Patient will be discharged home. - Discharge Plan Condition: Good Disposition: HOME Patient Education Materials: A-fib (Atrial Fibrillation) (ED) Referrals: Maria Ines Yeh DO [Primary Care Provider] - Additional Instructions: You have gone into atrial fibrillation, but with the atenolol the rate is controlled with your atenolol so there is no immediate concern. It may revert to a normal rhythm on its own. Eventually I suspect your negative spotter will want you on an anticoagulant medication to reduce the risk of stroke associated with a. fib., but since you are scheduled to have some procedures this week I would not put you on it right away. Please contact your negative spotter at [place] on [address] so they can get you in and discuss the options of cardioversion vs. medical management of this condition. I have sent in a prescription for eliquis , but hold off until you have the procedure and your negative spotter says it's ok for you to start. - Billing Disposition and Condition Condition: GOOD Disposition: Home - Attestation Statements Document Initiated by Zi: Yes Documenting Scribe: Goldie Gomes Provider For Whom Zi is Documenting (Include Credential): Dr. Duc Albert MD Scribe Attestation: I, Goldie Gomes scribed for Dr. Duc Albert MD on 11/26/19 at 0141. Scribe Documentation Reviewed: Yes Provider Attestation: The documentation as recorded by the Goldie alford accurately reflects the service I personally performed and the decisions made by me, Dr. Duc Albert MD Status of Scribe Document: Viewed
[2019-11-25 22:03] LABS: ABS Eosinophils 0.1 10^3/ul (0-0.6); ABS Monocytes 0.4 10^3/ul (0-0.8); ABS Neutrophils 4.5 10^3/ul (1.5-7.7); Eosinophil % 1.7 %; Hematocrit 39 % (35-47); Hemoglobin 13.3 g/dL (12.0-16.0); Lymphocyte % 16.6 %; Mean Corpuscular HGB Conc 34 g/dL (31-36); Mean Corpuscular Hemoglobin 29 pg (27-31); Mean Corpuscular Volume 87 fL (80-97); Mean Platelet Volume 7.5 fL (7.4-10.4); Platelet Count 330 10^3/uL (150-450); Red Blood Count 4.52 10^6 /uL (3.70-4.87); Red Cell Distribution Width 14 % (10-15); White Blood Count 6.1 10^3/uL (3.5-10.8)
[2019-11-25 22:16] LABS: Albumin/Globulin Ratio 1.9 (1-3); Calcium 8.9 mg/dL (8.6-10.3); EGFR African American 70.5 (>60); EGFR Non-African American 58.3 (>60); Globulin 2.1 g/dL (2-4); Potassium 3.4 mmol/L (3.5-5.0); Total Bilirubin 0.3 mg/dL (0.2-1.0); Total Protein 6.1 g/dL (6.4-8.9)
[2019-11-25 22:48] LABS: TSH (Thyroid Stimulating Horm) 0.92 mcIU/mL (0.34-5.60)
[2019-11-25 23:57] VITALS: BP 129/87
== END 2019-11-26 00:04 | disposition home or self-care (01) ==
LOC: ED 19:42
DX: I48.91 Unspecified atrial fibrillation (principal); R42 Dizziness and giddiness
CPT/HCPCS: 36415; 80053; 84443; 85025; 93005; 99283

== ENCOUNTER 2020-08-17 13:25 | Observation (INO) ==
[2020-08-17 14:08] LABS: ABS Lymphocytes 0.8 10^3/ul (1.0-4.8); ABS Monocytes 0.6 10^3/ul (0-0.8); ABS Neutrophils 5.9 10^3/ul (1.5-7.7); Eosinophil % 0.6 %; Hematocrit 38 % (35-47); Hemoglobin 12.4 g/dL (12.0-16.0); Lymphocyte % 11.3 %; Mean Corpuscular HGB Conc 33 g/dL (31-36); Mean Corpuscular Hemoglobin 29 pg (27-31); Mean Corpuscular Volume 87 fL (80-97); Mean Platelet Volume 7.4 fL (7.4-10.4); Platelet Count 331 10^3/uL (150-450); Red Blood Count 4.36 10^6 /uL (3.70-4.87); Red Cell Distribution Width 14 % (10-15); White Blood Count 7.4 10^3/uL (3.5-10.8)
[2020-08-17 14:35] LABS: BUN/Creatinine Ratio 24.4 (8-20); Calcium 8.6 mg/dL (8.6-10.3); EGFR African American 76.1 (>60); EGFR Non-African American 62.9 (>60); Magnesium 2.1 mg/dL (1.9-2.7); Potassium 3.7 mmol/L (3.5-5.0)
[2020-08-17] MEDS ORDERED: CHOLECALCIFEROL 10000 UNIT PO SCH (16:30)
[2020-08-17 17:53] LABS: TSH Ultra Thyroid Stim Horm 0.82 mcIU/mL (0.34-5.60)
[2020-08-17] MEDS: Heparin 5000 UNITS/ML 1 mL VIAL SUBCUT SCH (20:21)
[2020-08-18] MEDS: Heparin 5000 UNITS/ML 1 mL VIAL SUBCUT SCH (05:34)
[2020-08-18 07:10] LABS: BUN/Creatinine Ratio 23.8 (8-20); Calcium 8.6 mg/dL (8.6-10.3); EGFR African American 82.7 (>60); EGFR Non-African American 68.3 (>60); HDL Cholesterol 86.5 mg/dL; Potassium 3.8 mmol/L (3.5-5.0)
[2020-08-18] MEDS ORDERED: Calcium Carb 1250 mg TAB (500 mg elemental calcium) PO SCH (09:00)
[2020-08-18] MEDS ORDERED: Aspirin EC 81 mg TAB.EC (enteric coated) PO SCH (09:00)
[2020-08-18] MEDS ORDERED: MINS AREDS2 PO SCH (09:00)
[2020-08-18] MEDS ORDERED: MULTIVITAMINS PO SCH (09:00)
[2020-08-18 11:44] VITALS: BP 121/64
== END 2020-08-18 14:25 | disposition home or self-care (01) ==
LOC: MEDTELE 13:25 → ED 13:25 → MEDTELE 18:15
PROVIDERS: ADMIT Internal Medicine; ATTEND Internal Medicine